=== PATIENT | male | born 1985 | race Caucasian/White ===

== ENCOUNTER 2022-03-21 13:39 | Inpatient (IN) | payer OTHER ==
[2022-03-21 14:42] LABS: Basophils # (A) 0.1 k/uL (0-0.2); Basophils % (A) 0 %; Eosinophils # (A) 0.2 k/uL (0-0.7); Eosinophils % (A) 1 %; HCT 46.3 % (39.0-53.0); HGB 15.5 gm/dL (13.0-17.5); Lymphocytes # (A) 0.8 k/uL (1.0-4.8); Lymphocytes % (A) 3 %; MCH 30.5 pg (25.0-35.0); MCHC 33.5 g/dL (31.0-37.0); MCV 90.9 fL (80.0-100.0); Mean Platelet Volume 9.1; Monocytes # (A) 0.8 k/uL (0-1.0); Monocytes % (A) 3 %; Neutrophils # (A) 22.8 k/uL (1.3-7.7); Neutrophils % (A) 92 %; Platelet Count 395 k/uL (150-450); RDW 12.9 % (11.5-15.5); WBC 24.7 k/uL (3.8-10.6)
[2022-03-21 14:53] LABS: Calcium 9.3 mg/dL (8.4-10.2); Total Protein 8.4 g/dL (6.3-8.2)
[2022-03-21 14:57] LABS: Potassium 4.3 mmol/L (3.5-5.1)
[2022-03-21] MEDS ORDERED: SODIUM CHLORIDE 0.9% 1,000 ML IV STA (15:08)
[2022-03-21] MEDS ORDERED: SODIUM CHLORIDE 0.9% 1,000 ML IV ONE ×2 (15:08)
[2022-03-21] MEDS ORDERED: ONDANSETRON 4 MG/2 ML VIAL IVP STA (15:08)
[2022-03-21] MEDS ORDERED: PANTOPRAZOLE 40 MG/10 ML VIAL IVP STA (15:08)
--- NOTE | 2022-03-21 15:18 | ED ---
GI Bleed HPI - General Chief complaint: GI Bleed Stated complaint: vomiting blood Time Seen by Provider: 03/21/22 14:11 Source: patient, EMS Mode of arrival: EMS Limitations: no limitations - History of Present Illness Initial comments: This patient is a 36-year-old man who arrives here by ambulance from [facility]. Patient was sent here to have evaluation for coffee-ground emesis. The patient states that he started having vomiting last evening. He has had 8-10 episodes of vomiting with coffee-ground material. He states he is not really keeping much in way of fluids down. He has some epigastric burning and cramping that is intermittent. He feels weak and dizzy. The patient is at [facility] to detox from opioids and benzodiazepines. Denies chest pain, dyspnea, diaphoresis or syncope. No change in bowel movemen ts noted. MD complaint: coffee ground emesis Onset/Timin -: days(s) Radiation: none Quality: cramping, burning Consistency: intermittent Improves with: none Worsens with: none Associated Symptoms: nausea, vomiting - Related Data Home Medications Medication Instructions Recorded Confirmed Acetaminophen [Tylenol] 650 mg PO Q4H PRN 03/21/22 03/21/22 Buprenorphine/Naloxone 8Mg/2Mg 1 film SL BID 03/21/22 03/21/22 [Suboxone 8-2Mg Film] Calcium/Magnesium/Zinc/Vitamin D 1 tab PO TID PRN 03/21/22 03/21/22 Chlorpheniramine Maleate 4 mg PO Q4H PRN 03/21/22 03/21/22 [Chlor-Trimeton] Hyoscyamine Sulfate [Levsin-Sl] 0.125 mg SL QID PRN 03/21/22 03/21/22 Ibuprofen [Motrin] 600 mg PO Q6H PRN 03/21/22 03/21/22 Multivitamins, Thera [Multivitamin 1 tab PO DAILY 03/21/22 03/21/22 (formulary)] PHENobarbitaL [PHENobarbital] 1 dose PO DIRECTED 03/21/22 03/21/22 Thiamine [Vitamin B-1] 100 mg PO DAILY 03/21/22 03/21/22 ondansetron HCL [Zofran] 8 mg PO Q6H PRN 03/21/22 03/21/22 Allergies Allergy/AdvReac Type Severity Reaction Status Date / Time No Known Allergies Allergy Verified 03/21/22 16:03 Review of Systems ROS Statement: Those systems with pertinent positive or pertinent negative responses have been documented in the HPI. ROS Other: All systems not noted in ROS Statement are negative. Constitutional: Reports: weakness. Denies: fever, chills Respiratory: Denies: cough, dyspnea Cardiovascular: Denies: chest pain, palpitations, edema Gastrointestinal: Reports: nausea, vomiting, hematemesis. Denies: abdominal pain, melena, hematochezia Genitourinary: Denies: dysuria, hematuria Skin: Denies: rash Neurological: Denies: headache, weakness Hematological/Lymphatic: Denies: easy bleeding Past Medical History Past Medical History: No Reported History Additional Past Medical History / Comment(s): Hep C History of Any Multi-Drug Resistant Organisms: None Reported Past Surgical History: Orthopedic Surgery Additional Past Surgical History / Comment(s): right hand Past Psychological History: Anxiety, Depression Smoking Status: Current every day smoker Past Alcohol Use History: None Reported Past Drug Use History: Heroin, IV Drug Use, Marijuana, Opiates General Exam Limitations: no limitations General appearance: alert, in no apparent distress, anxious Head exam: Present: atraumatic, normocephalic Eye exam: Present: normal appearance. Absent: scleral icterus, conjunctival injection ENT exam: Present: mucous membranes dry Neck exam: Present: normal inspection Respiratory exam: Present: normal lung sounds bilaterally. Absent: respiratory distress, wheezes, rales, rhonchi, stridor Cardiovascular Exam: Present: normal rhythm, tachycardia, normal heart sounds. Absent: systolic murmur, diastolic murmur, rubs, gallop GI/Abdominal exam: Present: soft. Absent: distended, tenderness, guarding, rebound, rigid, mass Extremities exam: Present: normal inspection, normal capillary refill. Absent: pedal edema, calf tenderness Neurological exam: Present: alert Skin exam: Present: warm, dry, intact, normal color. Absent: rash Course Vital Signs 03/21/22 03/21/22 03/21/22 13:42 14:39 16:05 Temperature 98 F Pulse Rate 56 L 74 56 L Pulse Rate [ Marketing Research Intern ] Respiratory 16 18 18 Rate Blood Pressure 124/98 140/91 131/75 Blood Pressure [Left Arm] O2 Sat by Pulse 100 100 100 Oximetry 03/21/22 03/21/22 16:33 17:00 Temperature 97.9 F 98.7 F Pulse Rate 64 Pulse Rate [ 56 L Marketing Research Intern ] Respiratory 18 18 Rate Blood Pressure 135/81 Blood Pressure 122/77 [Left Arm] O2 Sat by Pulse 97 100 Oximetry Procedures - Niland Protocol (Time Out) Nurse: Karmen Fernández Medical Decision Making - Medical Decision Making This patient is 36-year-old man who arrives here from [facility] to have evaluation. Patient is found to have moderate dehydration, and IV fluids are started. There is minimally elevated troponin and suspect that this is related to the patient's acute kidney injury. - Lab Data Result diagrams: 03/24/22 09:42 03/25/22 07:47 Lab Results 03/21/22 03/21/22 03/21/22 Range/Units 14:35 14:35 14:35 WBC 24.7 H (3.8-10.6) k/uL RBC 5.10 (4.30-5.90) m/uL Hgb 15.5 (13.0-17.5) gm/dL Hct 46.3 (39.0-53.0) % MCV 90.9 (80.0-100.0) fL MCH 30.5 (25.0-35.0) pg MCHC 33.5 (31.0-37.0) g/dL RDW 12.9 (11.5-15.5) % Plt Count 395 (150-450) k/uL MPV 9.1 Neutrophils % 92 % Lymphocytes % 3 % Monocytes % 3 % Eosinophils % 1 % Basophils % 0 % Neutrophils # 22.8 H (1.3-7.7) k/uL Lymphocytes # 0.8 L (1.0-4.8) k/uL Monocytes # 0.8 (0-1.0) k/uL Eosinophils # 0.2 (0-0.7) k/uL Basophils # 0.1 (0-0.2) k/uL APTT 23.7 (22.0-30.0) sec Sodium 136 L (137-145) mmol/L Potassium 4.3 (3.5-5.1) mmol/L Chloride 84 L (98-107) mmol/L Carbon Dioxide 30 (22-30) mmol/L Anion Gap 22 mmol/L BUN 62 H (9-20) mg/dL Creatinine 1.60 H (0.66-1.25) mg/dL Est GFR (CKD-EPI)AfAm 63 (>60 ml/min/1.73 sqM) Est GFR (CKD-EPI)NonAf 55 (>60 ml/min/1.73 sqM) Glucose 159 H (74-99) mg/dL Lactic Ac Sepsis Rflx Plasma Lactic Acid Polo (0.7-2.0) mmol/L Calcium 9.3 (8.4-10.2) mg/dL Total Bilirubin 1.0 (0.2-1.3) mg/dL AST 39 (17-59) U/L ALT 42 (4-49) U/L Alkaline Phosphatase 76 (38-126) U/L Troponin I (0.000-0.034) ng/mL Total Protein 8.4 H (6.3-8.2) g/dL Albumin 5.0 (3.5-5.0) g/dL Blood Type Blood Type Recheck Bld Type Recheck Status Antibody Screen Spec Expiration Date 03/21/22 03/21/22 03/21/22 Range/Units 14:35 14:35 14:35 WBC (3.8-10.6) k/uL RBC (4.30-5.90) m/uL Hgb (13.0-17.5) gm/dL Hct (39.0-53.0) % MCV (80.0-100.0) fL MCH (25.0-35.0) pg MCHC (31.0-37.0) g/dL RDW (11.5-15.5) % Plt Count (150-450) k/uL MPV Neutrophils % % Lymphocytes % % Monocytes % % Eosinophils % % Basophils % % Neutrophils # (1.3-7.7) k/uL Lymphocytes # (1.0-4.8) k/uL Monocytes # (0-1.0) k/uL Eosinophils # (0-0.7) k/uL Basophils # (0-0.2) k/uL APTT (22.0-30.0) sec Sodium (137-145) mmol/L Potassium (3.5-5.1) mmol/L Chloride (98-107) mmol/L Carbon Dioxide (22-30) mmol/L Anion Gap mmol/L BUN (9-20) mg/dL Creatinine (0.66-1.25) mg/dL Est GFR (CKD-EPI)AfAm (>60 ml/min/1.73 sqM) Est GFR (CKD-EPI)NonAf (>60 ml/min/1.73 sqM) Glucose (74-99) mg/dL Lactic Ac Sepsis Rflx Plasma Lactic Acid Polo 7.5 H* (0.7-2.0) mmol/L Calcium (8.4-10.2) mg/dL Total Bilirubin (0.2-1.3) mg/dL AST (17-59) U/L ALT (4-49) U/L Alkaline Phosphatase (38-126) U/L Troponin I 0.052 H* (0.000-0.034) ng/mL Total Protein (6.3-8.2) g/dL Albumin (3.5-5.0) g/dL Blood Type O Positive Blood Type Recheck No Previous Record Bld Type Recheck Status CABO Indicated Antibody Screen NEGATIVE Spec Expiration Date 03/24/2022 - 233403/21/22 Range/Units 14:59 WBC (3.8-10.6) k/uL RBC (4.30-5.90) m/uL Hgb (13.0-17.5) gm/dL Hct (39.0-53.0) % MCV (80.0-100.0) fL MCH (25.0-35.0) pg MCHC (31.0-37.0) g/dL RDW (11.5-15.5) % Plt Count (150-450) k/uL MPV Neutrophils % % Lymphocytes % % Monocytes % % Eosinophils % % Basophils % % Neutrophils # (1.3-7.7) k/uL Lymphocytes # (1.0-4.8) k/uL Monocytes # (0-1.0) k/uL Eosinophils # (0-0.7) k/uL Basophils # (0-0.2) k/uL APTT (22.0-30.0) sec Sodium (137-145) mmol/L Potassium (3.5-5.1) mmol/L Chloride (98-107) mmol/L Carbon Dioxide (22-30) mmol/L Anion Gap mmol/L BUN (9-20) mg/dL Creatinine (0.66-1.25) mg/dL Est GFR (CKD-EPI)AfAm (>60 ml/min/1.73 sqM) Est GFR (CKD-EPI)NonAf (>60 ml/min/1.73 sqM) Glucose (74-99) mg/dL Lactic Ac Sepsis Rflx Y Plasma Lactic Acid Polo (0.7-2.0) mmol/L Calcium (8.4-10.2) mg/dL Total Bilirubin (0.2-1.3) mg/dL AST (17-59) U/L ALT (4-49) U/L Alkaline Phosphatase (38-126) U/L Troponin I (0.000-0.034) ng/mL Total Protein (6.3-8.2) g/dL Albumin (3.5-5.0) g/dL Blood Type Blood Type Recheck Bld Type Recheck Status Antibody Screen Spec Expiration Date Critical Care Time Critical Care Time: Yes (30 minutes) Disposition Clinical Impression: Dehydration, Acute kidney injury, Lactic acidosis, Leukocytosis, GI bleed Disposition: ADMITTED IP TO THIS [facility] Condition: Fair Is patient prescribed a controlled substance at d/c from ED?: No
[2022-03-21] MEDS ORDERED: NICOTINE 21MG/24HR PATCH TRANSDERM STA (15:19)
[2022-03-21] MEDS ORDERED: NALOXONE 0.4 MG/ML 1 ML VIAL IV PRN (16:06)
[2022-03-21] MEDS ORDERED: ACETAMINOPHEN TAB 325 MG TAB PO PRN (17:45)
[2022-03-21] MEDS ORDERED: HYOSCYAMINE SULFATE 0.125 MG TAB SL PRN (17:45)
--- NOTE | 2022-03-21 18:17 | P.HPIM ---
History of Present Illness This is a pleasant 56 years old male with past medical history of Hep C, Anxiety, Depression,Curr ent every day smoker, Heroin, IV Drug Use, Marijuana, Opiates Patient was on [place] for opioids and benzodiazepine withdrawal for the last few days, he presents because of recurrent vomiting as he describes as coffee ground dark brown vomitus about 4-5 times per day and last night. This morning also he has been vomiting For 2 days has been complaining of from epigastric pain and discomfort but no significant tenderness, he rates his pain as 7/10 felt like sharp and patient states she is not eating well because of that He had normal bowel movement He has little short of breath but no coughing, no phlegm, no chest pain, He has no energy He denies headache or dizziness or weakness or numbness, no urinary urgency or problem Also patient was on ibuprofen at [facility] He smokes about 1 pack per day and he was counseled and he agrees to quit and to the nicotine patch. No alcohol. He has no primary doctor he sees Dr. Chavez for Suboxone. Patient also denies any chest pain Vitas looks stable, patient is afebrile. Labs reviewed, sample looks hemoconcentrated, WBC 24,000, hemoglobin 15.5, platelet normal. PTT 23. Sodium 136, creatinine elevated at 1.6. Elevated lactic acid 7.5, elevated troponin 0.05. EKG showing normal sinus rhythm at [address]-T changes, there was some suspicion of early repolarization. Review of Systems Review of systems CONSTITUTIONAL: No fever, no malaise, no fatigue. HEENT: No recent visual problems or hearing problems. Denied any sore throat. CARDIOVASCULAR: No orthopnea, PND, no palpitations, no syncope. PULMONARY: no cough, no hemoptysis. GASTROINTESTINAL: No diarrhea, . Normoactive bowel sounds. NEUROLOGICAL: No headaches, no weakness, no numbness. HEMATOLOGICAL: Denies any bleeding or petechiae. GENITOURINARY: Denies any burning micturition, frequency, or urgency. MUSCULOSKELETAL/RHEUMATOLOGICAL: Denies any joint pain, swelling, or any muscle pain. ENDOCRINE: Denies any polyuria or polydipsia. Past Medical History Past Medical History: No Reported History Additional Past Medical History / Comment(s): Hep C History of Any Multi-Drug Resistant Organisms: None Reported Past Surgical History: Orthopedic Surgery Additional Past Surgical History / Comment(s): right hand Past Psychological History: Anxiety, Depression Smoking Status: Current every day smoker Past Alcohol Use History: None Reported Past Drug Use History: Heroin, IV Drug Use, Marijuana, Opiates Medications and Allergies Home Medications Medication Instructions Recorded Confirmed Type Acetaminophen [Tylenol] 650 mg PO Q4H PRN 03/21/22 03/21/22 History Buprenorphine/Naloxone 8Mg/2Mg 1 film SL BID 03/21/22 03/21/22 History [Suboxone 8-2Mg Film] Calcium/Magnesium/Zinc/Vitamin D 1 tab PO TID PRN 03/21/22 03/21/22 History Chlorpheniramine Maleate 4 mg PO Q4H PRN 03/21/22 03/21/22 History [Chlor-Trimeton] Hyoscyamine Sulfate [Levsin-Sl] 0.125 mg SL QID PRN 03/21/22 03/21/22 History Ibuprofen [Motrin] 600 mg PO Q6H PRN 03/21/22 03/21/22 History Multivitamins, Thera [Multivitamin 1 tab PO DAILY 03/21/22 03/21/22 History (formulary)] PHENobarbitaL [PHENobarbital] 1 dose PO DIRECTED 03/21/22 03/21/22 History Thiamine [Vitamin B-1] 100 mg PO DAILY 03/21/22 03/21/22 History ondansetron HCL [Zofran] 8 mg PO Q6H PRN 03/21/22 03/21/22 History Allergies Allergy/AdvReac Type Severity Reaction Status Date / Time No Known Allergies Allergy Verified 03/21/22 16:03 Physical Exam Vitals: Vital Signs Temp Pulse Pulse Resp BP BP Pulse Ox 03/21/22 17:00 98.7 F 64 18 135/81 100 03/21/22 16:33 97.9 F 56 L 18 122/77 97 03/21/22 16:05 56 L 18 131/75 100 03/21/22 14:39 74 18 140/91 100 03/21/22 13:42 98 F 56 L 16 124/98 100 Intake and Output 03/21/22 03/21/22 03/21/22 06:59 14:59 22:59 Other: Weight 68.039 kg 68.039 kg GENERAL: The patient is alert and oriented x3, not in any acute distress. Well developed, well nourished. HEENT: Pupils are round and equally reacting to light. EOMI. No scleral icterus. No conjunctival pallor. Normocephalic, atraumatic. No pharyngeal erythema. No thyromegaly. CARDIOVASCULAR: S1 and S2 present. No murmurs, rubs, or gallops. PULMONARY: Chest is clear to auscultation, no wheezing or crackles. -ABDOMEN: Soft, nontender, no overt epigastric tenderness on palpation, only mild discomfort nondistended, normoactive bowel sounds. No palpable organomegaly. MUSCULOSKELETAL: No joint swelling or deformity. EXTREMITIES: No cyanosis, clubbing, or pedal edema. NEUROLOGICAL: Gross neurological examination did not reveal any focal deficits. SKIN: No rashes. no petechiae. Results CBC & Chem 7: 03/21/22 14:35 03/21/22 14:35 Labs: Abnormal Lab Results - Last 24 Hours (Table) 03/21/22 03/21/22 03/21/22 Range/Units 14:35 14:35 14:35 WBC 24.7 H (3.8-10.6) k/uL Neutrophils # 22.8 H (1.3-7.7) k/uL Lymphocytes # 0.8 L (1.0-4.8) k/uL Sodium 136 L (137-145) mmol/L Chloride 84 L (98-107) mmol/L BUN 62 H (9-20) mg/dL Creatinine 1.60 H (0.66-1.25) mg/dL Glucose 159 H (74-99) mg/dL Plasma Lactic Acid Polo 7.5 H* (0.7-2.0) mmol/L Troponin I (0.000-0.034) ng/mL Total Protein 8.4 H (6.3-8.2) g/dL 03/21/22 Range/Units 14:35 WBC (3.8-10.6) k/uL Neutrophils # (1.3-7.7) k/uL Lymphocytes # (1.0-4.8) k/uL Sodium (137-145) mmol/L Chloride (98-107) mmol/L BUN (9-20) mg/dL Creatinine (0.66-1.25) mg/dL Glucose (74-99) mg/dL Plasma Lactic Acid Polo (0.7-2.0) mmol/L Troponin I 0.052 H* (0.000-0.034) ng/mL Total Protein (6.3-8.2) g/dL Assessment and Plan Assessment: Patient complains from coffee ground vomitus and epigastric pain, rule out GI bleed Elevated troponin, with no chest pain Anxiety, depression Nicotine dependence Recent history of substance abuse including benzodiazepines and opioids was on [place]. With previous history of IV drug abuse, marijuana History of hep C Elevated lactic acid acute kidney injury Plan: Check occult blood in stool Continue with IV hydration Continue with Protonix Avoid NSAIDs Monitor hemoglobin GI consult Cardiology consult, check echocardiogram Check bladder scan monitor creatinine Labs and medication were reviewed.. Continue same treatment. Continue with symptomatic treatment. Resume home medication. Monitor lytes and vitals. DVT and GI prophylaxis. Further recommendations as per clinical course of the patient DVT prophylaxis: no Subcutaneous heparin for possible GI bleed GI Prophylaxis: Ppi Prognosis is guarded
[2022-03-21] MEDS: SODIUM CHLORIDE 0.9% 1,000 ML IV SCH ×2 (18:59→23:44)
[2022-03-21] MEDS: NON FORMULARY DRUG (Buprenorphine/Naloxone 8mg/2mg 1 EACH Film) SUBLINGUAL SCH (21:11)
[2022-03-21] MEDS ORDERED: ZOLPIDEM 5 MG TAB PO ONE (23:33)
[2022-03-22 04:54] LABS: Basophils # (A) 0.1 k/uL (0-0.2); Basophils % (A) 0 %; Eosinophils # (A) 0.1 k/uL (0-0.7); Eosinophils % (A) 1 %; HCT 39.2 % (39.0-53.0); HGB 13.1 gm/dL (13.0-17.5); Lymphocytes # (A) 1.1 k/uL (1.0-4.8); Lymphocytes % (A) 6 %; MCH 30.3 pg (25.0-35.0); MCHC 33.5 g/dL (31.0-37.0); MCV 90.7 fL (80.0-100.0); Mean Platelet Volume 8.1; Monocytes # (A) 0.6 k/uL (0-1.0); Monocytes % (A) 4 %; Neutrophils # (A) 16.1 k/uL (1.3-7.7); Neutrophils % (A) 89 %; Platelet Count 307 k/uL (150-450); RBC 4.32 m/uL (4.30-5.90); RDW 12.6 % (11.5-15.5); WBC 18.1 k/uL (3.8-10.6)
[2022-03-22 05:06] LABS: Prothrombin Time 11.3 sec (9.0-12.0)
[2022-03-22 05:09] LABS: ALT 21 U/L (4-49); AST 21 U/L (17-59); African American GFR (CKD) >90 (>60 ml/min/1.73 sqM); Albumin 3.8 g/dL (3.5-5.0); Alkaline Phosphatase 70 U/L (38-126); Anion Gap 11 mmol/L; Bilirubin, Delta 0.2 mg/dL (0.0-0.2); Bilirubin,Unconjugated 0.5 mg/dL (0.0-1.1); Blood Urea Nitrogen 33 mg/dL (9-20); Calcium 8.1 mg/dL (8.4-10.2); Carbon Dioxide 28 mmol/L (22-30); Chloride 97 mmol/L (98-107); Glucose 107 mg/dL (74-99); Magnesium 2.2 mg/dL (1.6-2.3); Non-African American GFR(CKD) >90 (>60 ml/min/1.73 sqM); Potassium 3.9 mmol/L (3.5-5.1); Sodium 136 mmol/L (137-145); Total Bilirubin 0.7 mg/dL (0.2-1.3); Total Protein 6.4 g/dL (6.3-8.2)
[2022-03-22] MEDS ORDERED: NON FORMULARY DRUG (Calcium/Magnesium/Zinc/Vitamin D 1 TAB) PO PRN (08:00)
[2022-03-22] MEDS ORDERED: PANTOPRAZOLE 40 MG/10 ML VIAL IV SCH (09:00)
[2022-03-22 09:06] LABS: Basophils % (A) 0 %; Eosinophils % (A) 0 %; HCT 39.4 % (39.0-53.0); Lymphocytes # (A) 1.1 k/uL (1.0-4.8); Lymphocytes % (A) 7 %; MCH 30.4 pg (25.0-35.0); MCHC 33.1 g/dL (31.0-37.0); MCV 91.8 fL (80.0-100.0); Mean Platelet Volume 8.1; Monocytes # (A) 0.6 k/uL (0-1.0); Monocytes % (A) 4 %; Neutrophils # (A) 13.2 k/uL (1.3-7.7); Neutrophils % (A) 88 %; Platelet Count 295 k/uL (150-450); RBC 4.29 m/uL (4.30-5.90); RDW 12.5 % (11.5-15.5); WBC 15.1 k/uL (3.8-10.6)
[2022-03-22 09:16] LABS: African American GFR (CKD) >90 (>60 ml/min/1.73 sqM); Anion Gap 11 mmol/L; Blood Urea Nitrogen 28 mg/dL (9-20); Calcium 8.2 mg/dL (8.4-10.2); Carbon Dioxide 27 mmol/L (22-30); Chloride 98 mmol/L (98-107); Glucose 121 mg/dL (74-99); Magnesium 2.1 mg/dL (1.6-2.3); Non-African American GFR(CKD) >90 (>60 ml/min/1.73 sqM); Potassium 3.8 mmol/L (3.5-5.1); Sodium 136 mmol/L (137-145)
[2022-03-22] MEDS: MULTIVITAMINS, THERA 1 EACH TAB PO SCH (09:19)
[2022-03-22] MEDS: THIAMINE 100 MG TAB PO SCH (09:19)
[2022-03-22] MEDS: SODIUM CHLORIDE 0.9% 1,000 ML IV SCH ×2 (09:19→15:32)
[2022-03-22] MEDS: NON FORMULARY DRUG (Buprenorphine/Naloxone 8mg/2mg 1 EACH Film) SUBLINGUAL SCH ×2 (09:20→20:57)
--- NOTE | 2022-03-22 10:01 | P.CRDCN ---
History of Present Illness Consult date: 03/22/22 History of present illness: HISTORY OF PRESENT ILLNESS: This is a 36-year-old male with a past medical history significant for hepatitis C, anxiety, depression, nicotine dependence, drug abuse including benzodiazepines, opiates, and cocaine. Patient states he last used cocaine on Saturday. Opiates on Saturday, and benzodiazepines on Saturday. He is currently at [facility] for rehab. 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 We have been asked to see the patient in consultation for abnormal troponins. Patient examined at the bedside. Patient states on Saturday night he began to feel nauseous. He states that he started throwing up brown-colored emesis that resembled coffee grounds. He states that he was lightheaded and dizzy. He denied having any chest pain or pressure. He states he has not been eating or drinking well since Saturday. The patient was found to have an acute kidney injury with a creatinine of 1.6. He has received IV fluid hydration with improvement in his renal function. Patient was found to have leukocytosis upon admission with a white count of 24.7. He was also found to have lactic acidosis with a lactic acid of 7.5. * EKG reveals sinus mechanism with no signs of acute ischemic. * Laboratory data: WBC 15.1. Hemoglobin 13.0. Platelet count 295. Sodium 136. Potassium 3.8. BUN 28. Creatinine 0.83. Troponin 0.052. 0.075. 0.073. * Current home cardiac medications include none REVIEW OF SYSTEMS: At the time of my exam: CONSTITUTIONAL: Denies fever or chills. HEENT: Denies blurred vision, vision changes, or eye pain. Denies hemoptysis CARDIOVASCULAR: Denies chest pain. Denies orthopnea. Denies PND. Denies palpitations RESPIRATORY: Denies shortness of breath. GASTROINTESTINAL: Denies abdominal pain. Denies nausea or vomiting. HEMATOLOGIC: Denies bleeding disorders. GENITOURINARY: Denies any blood in urine. SKIN: Denies pruitis. Denies rash. PHYSICAL EXAM: VITAL SIGNS: Reviewed. GENERAL: Well-developed in no acute distress. HEENT: Head is normocephalic. Pupils are equal, round. Sclerae anicteric. Mucous membranes of the mouth are moist. Neck supple. No JVD or thyromegaly LUNGS: Respirations even and unlabored. Lungs essentially clear to auscultation bilaterally. HEART: Regular rate and rhythm. S1 and S2 heard. ABDOMEN: Soft. Nondistended. Nontender. EXTREMITIES: Normal range of motion. No clubbing or cyanosis. Peripheral pulses intact. No lower extremity edema NEUROLOGIC: Awake and alert. Oriented x 3. ASSESSMENT: Coffee ground emesis, r/o GI bleed Leukocytosis Lactic acidosis Acute kidney injury Abnormal troponins, not suggestive of acute coronary syndrome Nicotine dependence Benzodiazepine abuse Opiate abuse Cocaine use PLAN: An acute coronary event has been ruled out Obtain 2D echo to assess cardiac structure and function Await GI evaluation Obtain blood cultures Further recommendations pending patient course Nurse practitioner note has been reviewed by physician. Signing provider agrees with the documented findings, assessment, and plan of care. Past Medical History Past Medical History: No Reported History Additional Past Medical History / Comment(s): Hep C History of Any Multi-Drug Resistant Organisms: None Reported Past Surgical History: Orthopedic Surgery Additional Past Surgical History / Comment(s): right hand Past Psychological History: Anxiety, Depression Smoking Status: Current every day smoker Past Alcohol Use History: None Reported Past Drug Use History: Heroin, IV Drug Use, Marijuana, Opiates Medications and Allergies Home Medications Medication Instructions Recorded Confirmed Type Acetaminophen [Tylenol] 650 mg PO Q4H PRN 03/21/22 03/21/22 History Buprenorphine/Naloxone 8Mg/2Mg 1 film SL BID 03/21/22 03/21/22 History [Suboxone 8-2Mg Film] Calcium/Magnesium/Zinc/Vitamin D 1 tab PO TID PRN 03/21/22 03/21/22 History Chlorpheniramine Maleate 4 mg PO Q4H PRN 03/21/22 03/21/22 History [Chlor-Trimeton] Hyoscyamine Sulfate [Levsin-Sl] 0.125 mg SL QID PRN 03/21/22 03/21/22 History Ibuprofen [Motrin] 600 mg PO Q6H PRN 03/21/22 03/21/22 History Multivitamins, Thera [Multivitamin 1 tab PO DAILY 03/21/22 03/21/22 History (formulary)] PHENobarbitaL [PHENobarbital] 1 dose PO DIRECTED 03/21/22 03/21/22 History Thiamine [Vitamin B-1] 100 mg PO DAILY 03/21/22 03/21/22 History ondansetron HCL [Zofran] 8 mg PO Q6H PRN 03/21/22 03/21/22 History Allergies Allergy/AdvReac Type Severity Reaction Status Date / Time No Known Allergies Allergy Verified 03/21/22 16:03 Physical Exam Vitals: Vital Signs Temp Pulse Pulse Resp BP BP Pulse Ox 03/22/22 04:00 98.7 F 92 18 140/74 97 03/22/22 00:00 98.8 F 88 18 138/68 98 03/21/22 20:00 99.2 F 90 18 134/65 97 03/21/22 17:00 98.7 F 64 18 135/81 100 03/21/22 16:33 97.9 F 56 L 18 122/77 97 03/21/22 16:05 56 L 18 131/75 100 03/21/22 14:39 74 18 140/91 100 03/21/22 13:42 98 F 56 L 16 124/98 100 Intake and Output 03/21/22 03/22/22 03/22/22 22:59 06:59 14:59 Intake Total 240 Balance 240 Intake: Oral 240 Other: Voiding Method Toilet Toilet # Voids 2 Weight 68.039 kg Results 03/22/22 08:36 03/22/22 08:36 Cardiac Enzymes 03/21/22 03/21/22 03/21/22 Range/Units 14:35 14:35 18:48 AST 39 (17-59) U/L Troponin I 0.052 H* 0.075 H* (0.000-0.034) ng/mL 03/21/22 03/22/22 Range/Units 20:41 04:13 AST 21 (17-59) U/L Troponin I 0.073 H* (0.000-0.034) ng/mL Coagulation 03/21/22 03/22/22 Range/Units 14:35 04:13 PT 11.3 (9.0-12.0) sec APTT 23.7 (22.0-30.0) sec CBC 03/21/22 03/22/22 Range/Units 14:35 04:13 WBC 24.7 H 18.1 H (3.8-10.6) k/uL RBC 5.10 4.32 (4.30-5.90) m/uL Hgb 15.5 13.1 (13.0-17.5) gm/dL Hct 46.3 39.2 (39.0-53.0) % Plt Count 395 307 (150-450) k/uL Comprehensive Metabolic Panel 03/21/22 03/22/22 Range/Units 14:35 04:13 Sodium 136 L 136 L (137-145) mmol/L Potassium 4.3 3.9 (3.5-5.1) mmol/L Chloride 84 L 97 L (98-107) mmol/L Carbon Dioxide 30 28 (22-30) mmol/L BUN 62 H 33 H (9-20) mg/dL Creatinine 1.60 H 0.85 (0.66-1.25) mg/dL Glucose 159 H 107 H (74-99) mg/dL Calcium 9.3 8.1 L (8.4-10.2) mg/dL Unconjugated Bilirubin 0.5 (0.0-1.1) mg/dL AST 39 21 (17-59) U/L ALT 42 21 (4-49) U/L Alkaline Phosphatase 76 70 (38-126) U/L Total Protein 8.4 H 6.4 (6.3-8.2) g/dL Albumin 5.0 3.8 (3.5-5.0) g/dL Current Medications Generic Name Dose Route Start Last Admin Trade Name Freq PRN Reason Stop Dose Admin Acetaminophen 650 mg 03/21/22 17:45 Acetaminophen Tab 325 Mg Tab PO Q4H PRN Fever and/ or Pain Hyoscyamine 0.125 mg 03/21/22 17:45 Hyoscyamine Sulfate 0.125 Mg Tab SL QID PRN GI Upset Sodium Chloride 1,000 mls @ 130 mls/hr 03/21/22 16:15 03/21/22 23:44 Saline 0.9% IV 130 mls/hr .[id number] LISANDRA Administration Multivitamins 1 each 03/22/22 09:00 Multivitamins, Thera 1 Each Tab PO DAILY LISANDRA Naloxone HCl 0.2 mg 03/21/22 16:06 Naloxone 0.4 Mg/Ml 1 Ml Vial IV Q2M PRN Opioid Reversal Non-Formulary Medication 1 film 03/21/22 21:00 03/21/22 21:11 Buprenorphine/Naloxone 8mg/2mg SUBLINGUAL 1 film BID LISANDRA Administration Pantoprazole Sodium 40 mg 03/22/22 09:00 Pantoprazole 40 Mg/10 Ml Vial IV DAILY LISANDRA Thiamine HCl 100 mg 03/22/22 09:00 Thiamine 100 Mg Tab PO DAILY LISANDRA Intake and Output 03/21/22 03/22/22 03/22/22 22:59 06:59 14:59 Intake Total 240 Balance 240 Intake: Oral 240 Other: Voiding Method Toilet Toilet # Voids 2 Weight 68.039 kg 03/22/22 04:13 03/22/22 04:13
--- NOTE | 2022-03-22 12:00 | CA ---
Transthoracic Echo Report Name: Timothy Gill Age: 36 Gender: M : 1985 Exam Date: 03/22/2022 08:12 Exam Location: [facility] Ht (in): 72 Wt (lb): 150 Ordering Physician: Zion Bradford MD Attending/Referring Phys: [id number], Suzette Afternoon Babysitter Katina Mcclure, MARCIA Procedure CPT: Indications: Rule out heart disease Cardiac Hx: Technical Quality: Contrast 1: Total Dose (mL): Contrast 2: Total Dose (mL): MEASUREMENTS (Male / Female) Normal Values 2D ECHO LV Diastolic Diameter PLAX 4.2 cm 4.2 - 5.9 / 3.9 - 5.3 cm LV Systolic Diameter PLAX 2.6 cm IVS Diastolic Thickness 1.1 cm 0.6 - 1.0 / 0.6 - 0.9 cm LVPW Diastolic Thickness 1.4 cm 0.6 - 1.0 / 0.6 - 0.9 cm LV Relative Wall Thickness 0.6 RV Internal Dim ED PLAX 3.2 cm LA Systolic Diameter LX 3.0 cm 3.0 - 4.0 / 2.7 - 3.8 cm M-MODE Aortic Root Diameter MM 4.1 cm MV E Point Septal Separation 0.5 cm AV Cusp Separation MM 2.3 cm DOPPLER MV Area PHT 3.0 cm??? Mitral E Point Velocity 62.8 cm/s Mitral A Point Velocity 51.5 cm/s Mitral E to A Ratio 1.2 MV Deceleration Time 257.0 ms MV E' Velocity 10.4 cm/s Mitral E to MV E' Ratio 6.1 FINDINGS Left Ventricle Mildly increased septal wall thickness. Left ventricular ejection fraction is estimated at 50-55%. Right Ventricle Normal right ventricular size and function. Right Atrium Normal right atrial size. Left Atrium Normal left atrial size. Mitral Valve Mitral valve thickened. Mild mitral regurgitation. Aortic Valve Trileaflet aortic valve. Tricuspid Valve Possible vegetation on septel leaflet vs Tricuspid valve thickening,mild tricuspid regurgitation. Pulmonic Valve Structurally normal pulmonic valve. Pericardium Normal pericardium. Aorta Normal size aortic root and proximal ascending aorta. CONCLUSIONS Normal LV systolic function Mild mitral regurgitation There is thickening of the tricuspid valve leaflets of unclear clinical significance-clinical correlation suggested Previewed by: Dr. Derrick Collins MD (Electronically Signed) Final Date: 22 March 2022 11:59
[2022-03-22] MEDS ORDERED: LOPERAMIDE 2 MG CAP PO PRN (13:40)
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
--- NOTE | 2022-03-22 14:12 | P.CONS ---
History of Present Illness - Reason for Consult Consult date: 03/22/22 GI bleed Requesting physician: Zion Bradford - Chief Complaint Coffee-ground emesis - History of Present Illness This is a pleasant 36-year-old male who presented from the [facility] to the emergency department after complaining of coffee-ground emesis. Patient states he had 4-5 episodes of coffee-ground emesis yesterday while he is been admitted as inpatient for drug rehabilitation for last 3 days duration. Patient states he has been going through withdrawal, overall not feeling well. He still states that he just is not feeling well, he is having abdominal discomfort. No further nausea or vomiting since yesterday. Hemoglobin is stable at 13.1. No previous history of GI bleed. No history of peptic ulcer disease, denies any anticoagulation or regular NSAID use. Patient does have a history of IV drug use last used on Saturday, opioid and benzodiazepine addiction as well. Patient states he has a history hepatitis C and was treated excellently 5 years ago. However has used since then. The patient is currently denying any chest pain no shortness of breath, just feels overall unwell. Patient has had some weight loss. Labs: WBC 15 hemoglobin 13 hematocrit 39 platelet count 295,000 INR 1.0 sodium 136 potassium 3.8 BUN 28 creatinine 0.8 total bilirubin 0.7 AST 21 ALT 21 alkaline phosphatase 70 Review of Systems REVIEW OF SYSTEMS: CARDIOPULMONARY: No chest pain or shortness of breath. Gastrointestinal: Epigastric discomfort. Nausea vomiting with coffee-ground emesis. No rectal bleeding, or melena. GENITOURINARY: No dysuria or hematuria. MUSCULOSKELETAL: Reports normal range of motion. SKIN: No rashes. No jaundice. ENDOCRINE: No chills, fevers. No excessive weight gain or loss. No polydipsia or polyuria. PSYCHIATRIC: Unremarkable. NEUROLOGY: No change in mental status. Denies dizziness, headache. ENT: Vision unremarkable. CONSTITUTIONAL: No recent weight loss. No fever, chills, night sweats. Past Medical History Past Medical History: No Reported History Additional Past Medical History / Comment(s): Hep C History of Any Multi-Drug Resistant Organisms: None Reported Past Surgical History: Orthopedic Surgery Additional Past Surgical History / Comment(s): right hand Past Psychological History: Anxiety, Depression Smoking Status: Current every day smoker Past Alcohol Use History: None Reported Past Drug Use History: Heroin, IV Drug Use, Marijuana, Opiates Medications and Allergies Home Medications Medication Instructions Recorded Confirmed Type Acetaminophen [Tylenol] 650 mg PO Q4H PRN 03/21/22 03/21/22 History Buprenorphine/Naloxone 8Mg/2Mg 1 film SL BID 03/21/22 03/21/22 History [Suboxone 8-2Mg Film] Calcium/Magnesium/Zinc/Vitamin D 1 tab PO TID PRN 03/21/22 03/21/22 History Chlorpheniramine Maleate 4 mg PO Q4H PRN 03/21/22 03/21/22 History [Chlor-Trimeton] Hyoscyamine Sulfate [Levsin-Sl] 0.125 mg SL QID PRN 03/21/22 03/21/22 History Ibuprofen [Motrin] 600 mg PO Q6H PRN 03/21/22 03/21/22 History Multivitamins, Thera [Multivitamin 1 tab PO DAILY 03/21/22 03/21/22 History (formulary)] PHENobarbitaL [PHENobarbital] 1 dose PO DIRECTED 03/21/22 03/21/22 History Thiamine [Vitamin B-1] 100 mg PO DAILY 03/21/22 03/21/22 History ondansetron HCL [Zofran] 8 mg PO Q6H PRN 03/21/22 03/21/22 History Allergies Allergy/AdvReac Type Severity Reaction Status Date / Time No Known Allergies Allergy Verified 03/21/22 16:03 Physical Exam Vitals: Vital Signs Temp Pulse Pulse Resp BP BP Pulse Ox 03/22/22 11:38 99.1 F 65 14 145/74 99 03/22/22 08:00 99.2 F 60 12 144/69 100 03/22/22 04:00 98.7 F 92 18 140/74 97 03/22/22 00:00 98.8 F 88 18 138/68 98 03/21/22 20:00 99.2 F 90 18 134/65 97 03/21/22 17:00 98.7 F 64 18 135/81 100 03/21/22 16:33 97.9 F 56 L 18 122/77 97 03/21/22 16:05 56 L 18 131/75 100 03/21/22 14:39 74 18 140/91 100 Intake and Output 03/21/22 03/22/2222 22:59 06:59 14:59 Intake Total 240 670 Balance 240 670 Intake: Intake, IV Titration 130 Amount Sodium Chloride 0.9% 1, 130 000 ml @ 130 mls/hr IV . Q7H42M [facility] Rx#:[id number] Oral 240 540 Other: Voiding Method Toilet Toilet Toilet # Voids 2 1 Weight 68.039 kg General appearance: The patient is alert, oriented, appears in no acute distress. HET: Head is normocephalic and atraumatic. Conjunctiva pink. Sclera anicteric. Neck: Supple without lymphadenopathy. Trachea midline. Heart: S1 S2. Regular rate and rhythm. Lungs: Clear to auscultation. Abdomen: Soft, epigastric tenderness, thin, nondistended with bowel sounds. No guarding or rigidity. Skin: No rashes. No jaundice. Extremities: Normal skin color and turgor. No pedal edema. Neurological: No focal deficits. Alert and oriented x3. Results CBC & Chem 7: 03/22/22 08:36 03/22/22 08:36 Labs: Abnormal Lab Results - Last 24 Hours (Table) 03/21/22 03/21/22 03/21/22 Range/Units 14:35 14:35 14:35 WBC 24.7 H (3.8-10.6) k/uL RBC (4.30-5.90) m/uL Neutrophils # 22.8 H (1.3-7.7) k/uL Lymphocytes # 0.8 L (1.0-4.8) k/uL Sodium 136 L (137-145) mmol/L Chloride 84 L (98-107) mmol/L BUN 62 H (9-20) mg/dL Creatinine 1.60 H (0.66-1.25) mg/dL Glucose 159 H (74-99) mg/dL Plasma Lactic Acid Polo 7.5 H* (0.7-2.0) mmol/L Calcium (8.4-10.2) mg/dL Troponin I (0.000-0.034) ng/mL Total Protein 8.4 H (6.3-8.2) g/dL 03/21/22 03/21/22 03/21/22 Range/Units 14:35 18:48 18:48 WBC (3.8-10.6) k/uL RBC (4.30-5.90) m/uL Neutrophils # (1.3-7.7) k/uL Lymphocytes # (1.0-4.8) k/uL Sodium (137-145) mmol/L Chloride (98-107) mmol/L BUN (9-20) mg/dL Creatinine (0.66-1.25) mg/dL Glucose (74-99) mg/dL Plasma Lactic Acid Polo 4.0 H* (0.7-2.0) mmol/L Calcium (8.4-10.2) mg/dL Troponin I 0.052 H* 0.075 H* (0.000-0.034) ng/mL Total Protein (6.3-8.2) g/dL 03/21/22 03/21/22 03/22/22 Range/Units 20:41 23:25 04:13 WBC 18.1 H (3.8-10.6) k/uL RBC (4.30-5.90) m/uL Neutrophils # 16.1 H (1.3-7.7) k/uL Lymphocytes # (1.0-4.8) k/uL Sodium (137-145) mmol/L Chloride (98-107) mmol/L BUN (9-20) mg/dL Creatinine (0.66-1.25) mg/dL Glucose (74-99) mg/dL Plasma Lactic Acid Polo 2.4 H* (0.7-2.0) mmol/L Calcium (8.4-10.2) mg/dL Troponin I 0.073 H* (0.000-0.034) ng/mL Total Protein (6.3-8.2) g/dL 03/22/22 03/22/22 03/22/22 Range/Units 04:13 08:36 08:36 WBC 15.1 H (3.8-10.6) k/uL RBC 4.29 L (4.30-5.90) m/uL Neutrophils # 13.2 H (1.3-7.7) k/uL Lymphocytes # (1.0-4.8) k/uL Sodium 136 L 136 L (137-145) mmol/L Chloride 97 L (98-107) mmol/L BUN 33 H 28 H (9-20) mg/dL Creatinine (0.66-1.25) mg/dL Glucose 107 H 121 H (74-99) mg/dL Plasma Lactic Acid Polo (0.7-2.0) mmol/L Calcium 8.1 L 8.2 L (8.4-10.2) mg/dL Troponin I (0.000-0.034) ng/mL Total Protein (6.3-8.2) g/dL Assessment and Plan (1) GI bleed Narrative/Plan: 36-year-old male recently admitted to [facility] for drug rehab. No IV drug user last used on Saturday, as well as opioid and benzodiazepam dependent. Patient likely going through withdrawal and was not feeling well causing patient to have nausea and vomiting. Patient had reported coffee-ground emesis. Hemoglobin stable however did have an elevated BUN may be consistent with the upper GI bleed. Possible etiologies include Annette-Quintero tear, gastritis, esophagitis, peptic ulcer disease, AVM or other possible etiology. Will proceed with EGD tomorrow. Protonix 40 mg twice a day. Current Visit: Yes Status: Acute Code(s): K92.2 - GASTROINTESTINAL HEM ORRHAGE, UNSPECIFIED SNOMED Code(s): 25666266 (2) History of hepatitis C Narrative/Plan: We'll repeat hepatitis panel as well as hepatitis C RNA as patient is actively IV drug user treated in the past for hepatitis C Current Visit: Yes Status: Acute Code(s): Z86.19 - PERSONAL HISTORY OF OTHER INFECTIOUS AND PARASITIC DISEASES SNOMED Code(s): 22257988128462 (3) Intravenous drug user Current Visit: Yes Status: Acute Code(s): F19.90 - OTHER PSYCHOACTIVE SUBSTANCE USE, UNSPECIFIED, UNCOMPLICATED SNOMED Code(s): 953808285 Plan: 1. Continue symptomatic and supportive care 2. Protonix 40 mg IV twice a day 3. Avoid NSAIDs 4. Daily CBC, transfuse for hemoglobin less than 7 5. Clear liquid diet, nothing by mouth after midnight 6. Plan for EGD tomorrow. Procedure discussed with patient including risks and benefits, patient willing to proceed. Thank you for this consultation, we will continue to follow. Dr. Gilberto Collins I agree with the dictator's note, documented as a scribe by Cyn Hayward.
[2022-03-22] MEDS ORDERED: LORazepam 1 MG TAB PO PRN ×2 (14:35)
[2022-03-22] MEDS ORDERED: LORazepam 0.5 MG TAB PO PRN (14:35)
[2022-03-22] MEDS ORDERED: VANCOMYCIN IV PER PHARMACY 1 EACH MISC MISCELLANE PRN (16:15)
[2022-03-22] MEDS: VANCOMYCIN 1,250 MG in SODIUM CHLORIDE 0.9% 250 ML IVPB SCH (17:09)
[2022-03-22] MEDS: PANTOPRAZOLE 40 MG/10 ML VIAL IV SCH (21:01)
[2022-03-23] MEDS: CEFEPIME 2 GM in SODIUM CHLORIDE 0.9% 100 ML IVPB SCH ×3 (00:06→09:27)
[2022-03-23] MEDS: SODIUM CHLORIDE 0.9% 1,000 ML IV SCH ×2 (00:07→06:50)
[2022-03-23] MEDS: VANCOMYCIN 1,250 MG in SODIUM CHLORIDE 0.9% 250 ML IVPB SCH ×2 (00:12→09:27)
[2022-03-23 08:50] LABS: HCT 37.7 % (39.0-53.0); HGB 12.6 gm/dL (13.0-17.5); MCH 30.9 pg (25.0-35.0); MCHC 33.5 g/dL (31.0-37.0); MCV 92.2 fL (80.0-100.0); Platelet Count 224 k/uL (150-450); RBC 4.09 m/uL (4.30-5.90); RDW 12.2 % (11.5-15.5); WBC 7.3 k/uL (3.8-10.6)
[2022-03-23 09:03] LABS: African American GFR (CKD) >90 (>60 ml/min/1.73 sqM); Non-African American GFR(CKD) >90 (>60 ml/min/1.73 sqM)
[2022-03-23] MEDS: NON FORMULARY DRUG (Buprenorphine/Naloxone 8mg/2mg 1 EACH Film) SUBLINGUAL SCH ×2 (09:27→21:57)
[2022-03-23] MEDS: PANTOPRAZOLE 40 MG/10 ML VIAL IV SCH ×2 (09:27→21:58)
--- NOTE | 2022-03-23 09:44 | P.CONS ---
History of Present Illness - Reason for Consult Consult date: 03/22/22 Cardiac vegetation Requesting physician: Rosa Maria Julien - Chief Complaint Vomiting x few days - History of Present Illness Patient is a 36-year male with a past medical history significant for IV drug use last IV drug use was on Saturday that is 3 days ago patient presenting to the [facility] ER with [place] [facility] for evaluation of coffee-ground emesis patient started having vomited the night before presentation the hospital and apparently did have 8-10 episodes of vomiting patient was unable to keep any fluid down has been complaining of epigastric pain with mostly burning 5-6 out of 10 no radiation. Complaining of feeling weak and dizzy patient denies having any headache or URI symptoms no chest pain shortness of breath or cough on presentation to the hospital the patient was afebrile did have a low-grade fever of 99.2 last night patient did have white count of 18.1 on admission with a left shift kidney function has been normal patient did have an echocardiogram and was noticed to have a evidence of possible vegetation on the septal leaflet versus tricuspid wall mild thickening infectious he was consulted because of abnormal echo concerning for endocarditis Review of Systems Positive point has been mentioned in the HPI rest of the systems are negative Past Medical History Past Medical History: No Reported History Additional Past Medical History / Comment(s): Hep C History of Any Multi-Drug Resistant Organisms: None Reported Past Surgical History: Orthopedic Surgery Additional Past Surgical History / Comment(s): right hand Past Psychological History: Anxiety, Depression Smoking Status: Current every day smoker Past Alcohol Use History: None Reported Past Drug Use History: Heroin, IV Drug Use, Marijuana, Opiates Medications and Allergies Home Medications Medication Instructions Recorded Confirmed Type Acetaminophen [Tylenol] 650 mg PO Q4H PRN 03/21/22 03/21/22 History Buprenorphine/Naloxone 8Mg/2Mg 1 film SL BID 03/21/22 03/21/22 History [Suboxone 8-2Mg Film] Calcium/Magnesium/Zinc/Vitamin D 1 tab PO TID PRN 03/21/22 03/21/22 History Chlorpheniramine Maleate 4 mg PO Q4H PRN 03/21/22 03/21/22 History [Chlor-Trimeton] Hyoscyamine Sulfate [Levsin-Sl] 0.125 mg SL QID PRN 03/21/22 03/21/22 History Multivitamins, Thera [Multivitamin 1 tab PO DAILY 03/21/22 03/21/22 History (formulary)] PHENobarbitaL [PHENobarbital] 1 dose PO DIRECTED 03/21/22 03/21/22 History Thiamine [Vitamin B-1] 100 mg PO DAILY 03/21/22 03/21/22 History ondansetron HCL [Zofran] 8 mg PO Q6H PRN 03/21/22 03/21/22 History Pantoprazole [Protonix] 40 mg PO BID 42 Days #84 tab 03/26/22 Rx Allergies Allergy/AdvReac Type Severity Reaction Status Date / Time No Known Allergies Allergy Verified 03/21/22 16:03 Physical Exam Vitals: Vital Signs Temp Pulse Pulse Resp BP BP Pulse Ox 03/22/22 11:38 99.1 F 65 14 145/74 99 03/22/22 08:00 99.2 F 60 12 144/69 100 03/22/22 04:00 98.7 F 92 18 140/74 97 03/22/22 00:00 98.8 F 88 18 138/68 98 03/21/22 20:00 99.2 F 90 18 134/65 97 03/21/22 17:00 98.7 F 64 18 135/81 100 03/21/22 16:33 97.9 F 56 L 18 122/77 97 Intake and Output 03/22/22 03/22/22 03/22/22 06:59 14:59 22:59 Intake Total 240 670 Balance 240 670 Intake: Intake, IV Titration 130 Amount Sodium Chloride 0.9% 1, 130 000 ml @ 130 mls/hr IV . Q7H42M [facility] Rx#:[id number] Oral 240 540 Other: Voiding Method Toilet Toilet # Voids 2 1 GENERAL DESCRIPTION: Middle-aged male lying in bed, no distress. No tachypnea or accessory muscle of respiration use. HEENT: Shows Pallor , no scleral icterus. Oral mucous membrane is dry. No pharyngeal erythema or thrush NECK: Trachea central, no thyromegaly. LUNGS: Unlabored breathing. Clear to auscultation anteriorly. No wheeze or crackle. HEART: S1, S2, regular rate and rhythm. No loud murmur ABDOMEN: Soft, no tenderness , guarding or rigidity, no organomegaly EXTREMITIES: No edema of feet. SKIN: No rash, no masses palpable. NEUROLOGICAL: The patient is awake, alert, oriented x3, mood and affect normal. Results CBC & Chem 7: 03/26/22 08:47 03/26/22 08:47 Labs: Abnormal Lab Results - Last 24 Hours (Table) 03/21/22 03/21/22 03/21/22 Range/Units 18:48 18:48 20:41 WBC (3.8-10.6) k/uL RBC (4.30-5.90) m/uL Neutrophils # (1.3-7.7) k/uL Sodium (137-145) mmol/L Chloride (98-107) mmol/L BUN (9-20) mg/dL Glucose (74-99) mg/dL Plasma Lactic Acid Polo 4.0 H* (0.7-2.0) mmol/L Calcium (8.4-10.2) mg/dL Troponin I 0.075 H* 0.073 H* (0.000-0.034) ng/mL 03/21/22 03/22/22 03/22/22 Range/Units 23:25 04:13 04:13 WBC 18.1 H (3.8-10.6) k/uL RBC (4.30-5.90) m/uL Neutrophils # 16.1 H (1.3-7.7) k/uL Sodium 136 L (137-145) mmol/L Chloride 97 L (98-107) mmol/L BUN 33 H (9-20) mg/dL Glucose 107 H (74-99) mg/dL Plasma Lactic Acid Polo 2.4 H* (0.7-2.0) mmol/L Calcium 8.1 L (8.4-10.2) mg/dL Troponin I (0.000-0.034) ng/mL 03/22/22 03/22/22 Range/Units 08:36 08:36 WBC 15.1 H (3.8-10.6) k/uL RBC 4.29 L (4.30-5.90) m/uL Neutrophils # 13.2 H (1.3-7.7) k/uL Sodium 136 L (137-145) mmol/L Chloride (98-107) mmol/L BUN 28 H (9-20) mg/dL Glucose 121 H (74-99) mg/dL Plasma Lactic Acid Polo (0.7-2.0) mmol/L Calcium 8.2 L (8.4-10.2) mg/dL Troponin I (0.000-0.034) ng/mL Assessment and Plan (1) Abnormal echocardiogram Status: Acute Code(s): R93.1 - ABNORMAL FINDINGS ON DX IMAGING OF HEART AND COR CIRC SNOMED Code(s): 794993821 Plan: 1patient with an abnormal echocardiogram with concern for possible vegetation on the tricuspid wall in this patient who do have a history of IV drug use and is actively using drugs [facility] suspicious for infective endocarditis and possibly form MRSA less likely gram-negative but not entirely excluded. 2blood culture has been obtained x3. 3we will also obtain a CRP sed rate and a procalcitonin. 4we will empirically add vancomycin pharmacy to dose and cefepime while awaiting further work-up to be completed. 5patient will benefit from LEXII. We will follow on clinical condition and cultures to further adjust medication if needed Thank you for this consultation will follow this patient along with you Time with Patient: Greater than 30
[2022-03-23] MEDS: MULTIVITAMINS, THERA 1 EACH TAB PO SCH (10:02)
[2022-03-23] MEDS: THIAMINE 100 MG TAB PO SCH (10:03)
--- NOTE | 2022-03-23 10:24 | P.PN ---
Subjective Progress Note Date: 03/23/22 HISTORY OF PRESENT ILLNESS: This is a 36-year-old male with a past medical history significant for hepatitis C, anxiety, depression, nicotine dependence, drug abuse including benzodi azepines, opiates, and cocaine. Patient states he last used cocaine on Saturday. Opiates on Saturday, and benzodiazepines on Saturday. He is currently at [facility] for rehab. 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 We have been asked to see the patient in consultation for abnormal troponins. Patient examined at the bedside. Patient states on Saturday night he began to feel nauseous. He states that he started throwing up brown- colored emesis that resembled coffee grounds. He states that he was lightheaded and dizzy. He denied having any chest pain or pressure. He states he has not been eating or drinking well since Saturday. The patient was found to have an acute kidney injury with a creatinine of 1.6. He has received IV fluid hydration with improvement in his renal function. Patient was found to have leukocytosis upon admission with a white count of 24.7. He was also found to have lactic acidosis with a lactic acid of 7.5. * EKG reveals sinus mechanism with no signs of acute ischemic. * Laboratory data: WBC 15.1. Hemoglobin 13.0. Platelet count 295. Sodium 136. Potassium 3.8. BUN 28. Creatinine 0.83. Troponin 0.052. 0.075. 0.073. * Current home cardiac medications include none 03/23/2022 Patient examined this morning at the bedside. Patient states he is overall not feeling well. He denies chest pain or pressure. Denies SOB. He is scheduled for EGD today. Echocardiogram reveals reserved LV systolic function with possible vegetation on the tricuspid valve. Blood cultures are currently pending PHYSICAL EXAM: VITAL SIGNS: Reviewed. GENERAL: Well-developed in no acute distress. HEENT: Head is normocephalic. Pupils are equal, round. Sclerae anicteric. Mucous membranes of the mouth are moist. Neck supple. No JVD or thyromegaly LUNGS: Respirations even and unlabored. Lungs essentially clear to auscultation bilaterally. HEART: Regular rate and rhythm. S1 and S2 heard. ABDOMEN: Soft. Nondistended. Nontender. EXTREMITIES: Normal range of motion. No clubbing or cyanosis. Peripheral pulses intact. No lower extremity edema NEUROLOGIC: Awake and alert. Oriented x 3. ASSESSMENT: Coffee ground emesis, r/o GI bleed Leukocytosis Lactic acidosis Acute kidney injury Abnormal troponins, not suggestive of acute coronary syndrome Nicotine dependence Benzodiazepine abuse Opiate abuse Cocaine use PLAN: Infectious disease following. Continue antibiotics Patient scheduled for EGD today with GI team Await results of blood cultures Patient to undergo LEXII today Further recommendations pending patient course Nurse practitioner note has been reviewed by physician. Signing provider agrees with the documented findings, assessment, and plan of care. Objective - Vital Signs Vital signs: Vital Signs Temp 97.9 F 03/23/22 08:04 Pulse 56 L 03/23/22 08:04 Resp 18 03/23/22 08:04 BP 123/77 03/23/22 08:04 Pulse Ox 96 03/23/22 08:04 FiO2 Intake & Output 03/22/22 03/23/22 03/23/22 18:59 06:59 18:59 Intake Total 900 0 Balance 900 0 Intake: Intake, IV Titration 260 Amount Sodium Chloride 0.9% 1, 260 000 ml @ 130 mls/hr IV . Q7H42M [facility] Rx#:[id number] Oral 640 0 Other: Voiding Method Toilet Toilet Toilet # Voids 1 1 1 - Labs CBC & Chem 7: 03/23/22 08:23 03/23/22 08:23 Labs: Abnormal Lab Results - Last 24 Hours (Table) 03/22/22 03/23/22 Range/Units 16:19 08:23 RBC 4.09 L (4.30-5.90) m/uL Hgb 12.6 L (13.0-17.5) gm/dL Hct 37.7 L (39.0-53.0) % Procalcitonin 0.14 H (0.02-0.09) ng/mL
[2022-03-23] MEDS ORDERED: SODIUM CHLORIDE 0.9% 500 ML 500 ML IV ONE ×2 (14:15→14:56)
[2022-03-23] MEDS ORDERED: fentaNYL (PF) 50 MCG/ML 2 ML AMP ONE (14:22)
[2022-03-23] MEDS ORDERED: LIDOCAINE 2% INJ 20 MG/ML (2 ML VIAL) ONE (14:22)
[2022-03-23] MEDS ORDERED: PROPOFOL 10 MG/ML 20 ML VIAL IV ONE (14:22)
[2022-03-23] MEDS ORDERED: BENZOCAINE SPRAY 1 CAN MUCOUS MEM ONE (14:22)
[2022-03-23] MEDS ORDERED: MIDAZOLAM 2 MG/2 ML VIAL ONE (14:22)
--- NOTE | 2022-03-23 14:42 | P.PCN ---
Date of Procedure: 03/23/22 Description of Procedure: Indication: Evaluation of tricuspid valve Procedure Description: After explaining the procedure to the patient, it's risk and complications, blood pressure, heart rate and O2 saturation were monitored. The throat was sprayed with Cetacaine. Patient received sedation per anesthesia department. The probe was introduced into the esophagus without difficulty. Images were obtained. Following that, the probe was removed. There was no immediate complication. Findings: Left atrial size is normal, left ventricle size and systolic function are normal. The aortic valve and mitral valve are normal. There is mild thickening of the tip of the tricuspid valve leaflet with no clear evidence of vegetation. Pulmonic valve appears to be normal. Descending thoracic aorta appears to be normal. No pericardial effusion was noted. Contrast bubble study revealed no shunting across the intra-atrial septum. Doppler: Pulse wave and color Doppler were obtained, mild mitral and tricuspid regurgitation. There was no shunting across the intra-atrial septum Conclusion: 1. Normal ventricle size and systolic function 2. Mild mitral and tricuspid regurgitation 3. Mild thickening of the tip of the septal leaflet of the tricuspid valve with no evidence to suggest endocarditis 4. No shunting across the intra-atrial septum 5. No pericardial effusion
--- NOTE | 2022-03-23 14:50 | P.PCN ---
Date of Procedure: 03/23/22 Procedure(s) Performed: BRIEF HISTORY: Patient is a 36-year-old, pleasant, white male admitted hospital with acute upper GI bleed. He was asleep. We have undergoing rehabitation and developed 3 episodes of coffee-ground emesis. He scheduled for an upper endoscopy to evaluate further. PROCEDURE PERFORMED: Esophagogastroduodenoscopy. PREOPERATIVE DIAGNOSIS: Acute upper GI bleed. IV sedation per anesthesia. PROCEDURE: After informed consent was obtained, the patient was brought into the endoscopy unit. IV sedation was administered by Anesthesia under continuous monitoring. Initially the Olympus GIF-140 video endoscope was inserted into the mouth. Esophagus intubated without any difficulty. It was gradually advanced into the stomach and duodenum and carefully examined. The bulb and the second part of the duodenum appeared normal. The scope at this time was withdrawn to the stomach, adequately insufflated with air, and upon careful examination, mucosa of the antrum, body, cardia and the fundus appeared normal. The scope was then withdrawn into the esophagus.small hiatal hernia noted. the GE junction was located at 40 cm from the incisors. There was severe esophagitis with mucosal erythema friability and exudates noted in the distal esophagus extending from 30-40 cm from the incisors consistent with LA grade C reflux esophagitis. Tthe rest of esophagus appeared normal and the patient tolerated the procedure well. IMPRESSION: 1. Severe reflux esophagitis extended from 30-40 cm from the incisors with mucosal erythema friability and exudates consistent with LA grade C reflux esophagitis. 2. Small hiatal hernia. RECOMMENDATIONS: The findings of this examination were discussed with the patient. He will continue on Protonix 40 mg twice daily and follow antireflux measures.diet will be advanced as tolerated.
[2022-03-23] MEDS ORDERED: VANCOMYCIN TROUGH DUE 1 EACH MISC MISCELLANE ONE (15:00)
[2022-03-23 15:53] LABS: Hepatitis A Antibody IgM Nonreactive (Nonreactive); Hepatitis B Core IgM Nonreactive (Nonreactive); Hepatitis B Surface Antigen Nonreactive (Nonreactive); Hepatitis C IgG Antibody Reactive (Nonreactive)
[2022-03-23] MEDS: LORazepam 1 MG TAB PO PRN (21:57)
[2022-03-24] MEDS: MULTIVITAMINS, THERA 1 EACH TAB PO SCH (10:55)
[2022-03-24] MEDS: PANTOPRAZOLE 40 MG/10 ML VIAL IV SCH ×2 (10:55→20:46)
[2022-03-24] MEDS: LORazepam 1 MG TAB PO PRN ×2 (10:55→20:55)
[2022-03-24] MEDS: THIAMINE 100 MG TAB PO SCH (10:55)
[2022-03-24] MEDS: SODIUM CHLORIDE 0.9% 1,000 ML IV SCH (10:56)
--- NOTE | 2022-03-24 11:09 | P.PN ---
Subjective Progress Note Date: 03/24/22 PROGRESS NOTE The patient is a 36-year-old male with history of drug use who presented with symptoms of abdominal discomfort, nausea and vomiting and was found to have mild troponin elevation. His echocardiogram raised the possibility of tricuspid valve endocarditis. He underwent LEXII yesterday that showed mild thickening of the tip of the septal tricuspid valve leaflet with no clear evidence of vegeta tion. His systolic function was normal. He is feeling better today. He has no abdominal pain, nausea or vomiting. Medications: Protonix 40 mg IV every 12 hours PHYSICAL EXAMINATION: Blood pressure 118/70 heart rate 60 LUNGS: Clear to auscultation HEART: Regular rate and rhythm, S1, S2. No S3. No systolic murmur ABDOMEN: Soft, nontender, no organomegaly EXTREMETIES: No edema LAB: Pending IMPRESSION: 1. Troponin elevation with no evidence of acute coronary syndrome, type II event 2. History of drug use 3. Severe reflux esophagitis 4. Small hiatal hernia PLAN: 1. From the cardiac standpoint no further cardiac workup is needed 2. We will see him on as-needed basis 3. Please feel free to call us for any question Objective - Vital Signs Vital signs: Vital Signs Temp 98.5 F 03/24/22 00:00 Pulse 59 L 03/24/22 10:54 Resp 15 03/24/22 10:54 BP 118/77 03/24/22 10:54 Pulse Ox 99 03/24/22 10:54 FiO2 Intake & Output 03/23/22 03/24/22 03/24/22 18:59 06:59 18:59 Intake Total 610 590 Balance 610 590 Intake: IV 500 Intake, IV Titration 350 Amount Cefepime 2 gm In Sodium 100 Chloride 0.9% 100 ml @ 25 mls/hr IVPB Q8HR [facility] Rx# :[id number] Vancomycin 1,250 mg In 250 Sodium Chloride 0.9% 250 ml @ 125 mls/hr IVPB Q8HR [facility] Rx#:[id number] Oral 110 240 Other: Voiding Method Toilet Toilet # Voids 1 1 - Labs CBC & Chem 7: 03/23/22 08:23 03/23/22 08:23 Labs: Abnormal Lab Results - Last 24 Hours (Table) 03/23/22 Range/Units 08:23 Hep C IgG Ab Reactive A (Nonreactive) Microbiology - Last 24 Hours (Table) 03/22/22 16:19 Blood Culture - Preliminary Blood No Growth after 24 hours 03/22/22 16:27 Blood Culture - Preliminary Blood No Growth after 24 hours 03/22/22 10:05 Blood Culture - Preliminary Blood No Growth after 24 hours
[2022-03-24] MEDS: NON FORMULARY DRUG (Buprenorphine/Naloxone 8mg/2mg 1 EACH Film) SUBLINGUAL SCH ×2 (11:15→20:47)
[2022-03-24 15:53] LABS: African American GFR (CKD) >90 (>60 ml/min/1.73 sqM); Anion Gap 7 mmol/L; Blood Urea Nitrogen 21 mg/dL (9-20); Calcium 8.3 mg/dL (8.4-10.2); Carbon Dioxide 29 mmol/L (22-30); Chloride 100 mmol/L (98-107); Glucose 90 mg/dL (74-99); Non-African American GFR(CKD) >90 (>60 ml/min/1.73 sqM); Potassium 3.9 mmol/L (3.5-5.1); Sodium 136 mmol/L (137-145)
[2022-03-24 15:57] LABS: Basophils # (A) 0.1 k/uL (0-0.2); Basophils % (A) 1 %; Eosinophils # (A) 0.1 k/uL (0-0.7); Eosinophils % (A) 1 %; HGB 13.6 gm/dL (13.0-17.5); Lymphocytes # (A) 1.3 k/uL (1.0-4.8); Lymphocytes % (A) 20 %; MCH 30.3 pg (25.0-35.0); MCHC 33.2 g/dL (31.0-37.0); MCV 91.3 fL (80.0-100.0); Mean Platelet Volume 8.5; Monocytes # (A) 0.4 k/uL (0-1.0); Monocytes % (A) 6 %; Neutrophils # (A) 4.6 k/uL (1.3-7.7); Neutrophils % (A) 70 %; Platelet Count 210 k/uL (150-450); RDW 12.1 % (11.5-15.5); WBC 6.6 k/uL (3.8-10.6)
[2022-03-24 18:12] VITALS: RESP 16
--- NOTE | 2022-03-24 22:52 | P.PN ---
Subjective Progress Note Date: 03/23/22 Principal diagnosis: Abnormal Echo with question of endocarditis Patient is a 36-year-old male with a past medical history significant for IV drug use presenting to the hospital with coffee-ground emesis patient did have abnormal echo suspicion for possible vegetation to the tricuspid valve. On today's evaluation that is 03/23/2022, patient denies having any fever or any chills the patient is breathing comfortably on room air patient denies any further vomiting no chest pain shortness of breath or cough no abdominal pain or diarrhea Objective - Vital Signs Vital signs: Vital Signs Temp 97.9 F 03/23/22 12:47 Pulse 54 L 03/23/22 12:47 Resp 18 03/23/22 14:00 BP 133/97 03/23/22 12:47 Pulse Ox 96 03/23/22 12:47 FiO2 Intake & Output 03/22/22 03/23/22 03/23/22 18:59 06:59 18:59 Intake Total 900 500 Balance 900 500 Intake: IV 500 Intake, IV Titration 260 Amount Sodium Chloride 0.9% 1, 260 000 ml @ 130 mls/hr IV . Q7H42M [facility] Rx#:[id number] Oral 640 0 Other: Voiding Method Toilet Toilet Toilet # Voids 1 1 1 - Exam GENERAL DESCRIPTION: Middle-age male lying in bed in no distress RESPIRATORY SYSTEM: Unlabored breathing , decreased breath sounds at bases HEART: S1 S2 regular rate and rhythm , ABDOMEN: Soft , no tenderness EXTREMITIES: No edema feet - Labs CBC & Chem 7: 03/24/22 09:42 03/24/22 09:42 Labs: Abnormal Lab Results - Last 24 Hours (Table) 03/22/22 03/23/22 Range/Units 16:19 08:23 RBC 4.09 L (4.30-5.90) m/uL Hgb 12.6 L (13.0-17.5) gm/dL Hct 37.7 L (39.0-53.0) % Procalcitonin 0.14 H (0.02-0.09) ng/mL Microbiology - Last 24 Hours (Table) 03/22/22 10:05 Blood Culture - Preliminary Blood No Growth after 24 hours Assessment and Plan (1) Abnormal echocardiogram Current Visit: Yes Status: Acute Code(s): R93.1 - ABNORMAL FINDINGS ON DX IMAGING OF HEART AND COR CIRC SNOMED Code(s): 146853326 Plan: 1patient with an abnormal echocardiogram with concern for possible vegetation on the tricuspid wall in this patient who do have a history of IV drug use and is actively using drugs [facility] suspicious for infective endocarditis and possibly form MRSA less likely gram-negative but not entirely excluded. 2blood culture has been obtained x3 which are currently pending 3patient did have a LEXII with official report pending 4patient will continue with vancomycin pharmacy to dose and cefepime while awaiting further work-up to be completed. Time with Patient: Less than 30
--- NOTE | 2022-03-24 22:55 | P.PN ---
Subjective Progress Note Date: 03/24/22 Principal diagnosis: Abnormal Echo with question of endocarditis Patient is a 36-year-old male with a past medical history significant for IV drug use presenting to the hospital with coffee-ground emesis patient did have abnormal echo suspicion for possible vegetation to the tricuspid valve. Patient did have a LEXII completed on 03/23/2022 with no evidence of any veget ation On today's evaluation that is 03/24/2022, patient remains to be afebrile the patient is breathing comfortably on room air patient denies any further vomiting no chest pain shortness of breath or cough no abdominal pain or diarrhea, feeling slightly better Objective - Vital Signs Vital signs: Vital Signs Temp 98.0 F 03/24/22 14:19 Pulse 68 03/24/22 14:19 Resp 15 03/24/22 14:19 BP 117/72 03/24/22 14:19 Pulse Ox 98 03/24/22 14:19 FiO2 Intake & Output 03/23/22 03/24/22 03/24/22 18:59 06:59 18:59 Intake Total 610 590 Balance 610 590 Intake: IV 500 Intake, IV Titration 350 Amount Cefepime 2 gm In Sodium 100 Chloride 0.9% 100 ml @ 25 mls/hr IVPB Q8HR [facility] Rx# :[id number] Vancomycin 1,250 mg In 250 Sodium Chloride 0.9% 250 ml @ 125 mls/hr IVPB Q8HR [facility] Rx#:[id number] Oral 110 240 Other: Voiding Method Toilet Toilet # Voids 1 1 - Exam GENERAL DESCRIPTION: Middle-age male lying in bed in no distress RESPIRATORY SYSTEM: Unlabored breathing , decreased breath sounds at bases HEART: S1 S2 regular rate and rhythm , ABDOMEN: Soft , no tenderness EXTREMITIES: No edema feet - Labs CBC & Chem 7: 03/24/22 09:42 03/24/22 09:42 Labs: Abnormal Lab Results - Last 24 Hours (Table) 03/23/22 Range/Units 08:23 Hep C IgG Ab Reactive A (Nonreactive) Microbiology - Last 24 Hours (Table) 03/22/22 10:05 Blood Culture - Preliminary Blood No Growth after 48 hours 03/22/22 16:19 Blood Culture - Preliminary Blood No Growth after 24 hours 03/22/22 16:27 Blood Culture - Preliminary Blood No Growth after 24 hours Assessment and Plan (1) Abnormal echocardiogram Current Visit: Yes Status: Acute Code(s): R93.1 - ABNORMAL FINDINGS ON DX IMAGING OF HEART AND COR CIRC SNOMED Code(s): 054751798 Plan: 1patient with an abnormal echocardiogram with concern for possible vegetation on the tricuspid wall in this patient who do have a history of IV drug use and is actively using drugs [facility] suspicious for infective endocarditis , patient did have a LEXII that was negative for any vegetation, the patient blood culture had been negative so far clinically behaving is endocarditis 2vancomycin and cefepime has been discontinued and we'll monitor the patient closely off antibiotic therapy Time with Patient: Less than 30
[2022-03-25] MEDS: THIAMINE 100 MG TAB PO SCH (08:15)
[2022-03-25] MEDS: PANTOPRAZOLE 40 MG/10 ML VIAL IV SCH ×2 (08:15→20:43)
[2022-03-25] MEDS: MULTIVITAMINS, THERA 1 EACH TAB PO SCH (08:15)
[2022-03-25] MEDS: LORazepam 1 MG TAB PO PRN (08:40)
[2022-03-25 09:00] LABS: African American GFR (CKD) >90 (>60 ml/min/1.73 sqM); Non-African American GFR(CKD) >90 (>60 ml/min/1.73 sqM)
[2022-03-25] MEDS: NON FORMULARY DRUG (Buprenorphine/Naloxone 8mg/2mg 1 EACH Film) SUBLINGUAL SCH ×2 (09:46→20:43)
--- NOTE | 2022-03-25 10:43 | P.PN ---
Subjective Progress Note Date: 03/22/22 This is a pleasant 56 years old male with past medical history of Hep C, Anxiety, Depression,Curr ent every day smoker, Heroin, IV Drug Use, Marijuana, Opiates Patient was on [place] for opioids and benzodiazepine withdrawal for the last few days, he presents because of recurrent vomiting as he describes as coffee ground dark brown vomitus about 4-5 times per day and last night. This morning also he has been vomiting For 2 days has been complaining of from epigastric pain and discomfort but no s ignificant tenderness, he rates his pain as 7/10 felt like sharp and patient states she is not eating well because of that He had normal bowel movement He has little short of breath but no coughing, no phlegm, no chest pain, He has no energy He denies headache or dizziness or weakness or numbness, no urinary urgency or problem Also patient was on ibuprofen at [facility] He smokes about 1 pack per day and he was counseled and he agrees to quit and to the nicotine patch. No alcohol. He has no primary doctor he sees Dr. Chavez for Suboxone. Patient also denies any chest pain Vitas looks stable, patient is afebrile. Labs reviewed, sample looks hemoconcentrated, WBC 24,000, hemoglobin 15.5, platelet normal. PTT 23. Sodium 136, creatinine elevated at 1.6. Elevated lactic acid 7.5, elevated troponin 0.05. EKG showing normal sinus rhythm at [address]-T changes, there was some suspicion of early repolarization. 03/22/2022 Patient is currently lying in bed. Awake alert and seems distressed. Complains of epigastric abdominal pain. No further episodes of vomiting. No cough or sputum production. No chest pain or shortness of breath. 2-D echocardiogram showed thickening of the tricuspid valve leaflets of unclear clinical significance. Blood cultures were ordered. ID consult for possible infected endocarditis and patient was started on antibiotics in the form of cefazolin. Patient has been afebrile. No headache or dizziness or lightheadedness. Patie nt is still shaky and is being continued on alcohol withdrawal protocol. Laboratory data showed WBC count improved to 18.1 hemoglobin 13.1 and platelets 307 BUN 30. Creatinine 0.85. Current medications reviewed. Objective - Vital Signs Vital signs: Vital Signs Temp 99.1 F 03/22/22 11:38 Pulse 65 03/22/22 11:38 Resp 14 03/22/22 11:38 BP 145/74 03/22/22 11:38 Pulse Ox 99 03/22/22 11:38 FiO2 Intake & Output 03/21/22 03/22/22 03/22/22 18:59 06:59 18:59 Intake Total 240 670 Balance 240 670 Weight 68.039 kg Intake: Intake, IV Titration 130 Amount Sodium Chloride 0.9% 1, 130 000 ml @ 130 mls/hr IV . [id number] [facility] Rx#:[id number] Oral 240 540 Other: Voiding Method Toilet Toilet # Voids 2 1 - Exam GENERAL: The patient is alert and oriented x3, not in any acute distress. Well developed, well nourished. HEENT: Pupils are round and equally reacting to light. EOMI. No scleral icterus. No conjunctival pallor. Normocephalic, atraumatic. No pharyngeal erythema. No thyromegaly. CARDIOVASCULAR: S1 and S2 present. No murmurs, rubs, or gallops. PULMONARY: Chest is clear to auscultation, no wheezing or crackles. -ABDOMEN: Soft, nontender, no overt epigastric tenderness on palpation, only mild discomfort nondistended, normoactive bowel sounds. No palpable organomegaly. MUSCULOSKELETAL: No joint swelling or deformity. EXTREMITIES: No cyanosis, clubbing, or pedal edema. NEUROLOGICAL: Gross neurological examination did not reveal any focal deficits. SKIN: No rashes. no petechiae. - Labs CBC & Chem 7: 03/24/22 09:42 03/25/22 07:47 Labs: Abnormal Lab Results - Last 24 Hours (Table) 03/21/22 03/21/22 03/21/22 Range/Units 14:35 14:35 14:35 WBC 24.7 H (3.8-10.6) k/uL RBC (4.30-5.90) m/uL Neutrophils # 22.8 H (1.3-7.7) k/uL Lymphocytes # 0.8 L (1.0-4.8) k/uL Sodium 136 L (137-145) mmol/L Chloride 84 L (98-107) mmol/L BUN 62 H (9-20) mg/dL Creatinine 1.60 H (0.66-1.25) mg/dL Glucose 159 H (74-99) mg/dL Plasma Lactic Acid [place] 7.5 H* (0.7-2.0) mmol/L Calcium (8.4-10.2) mg/dL Troponin I (0.000-0.034) ng/mL Total Protein 8.4 H (6.3-8.2) g/dL 03/21/22 03/21/22 03/21/22 Range/Units 14:35 18:48 18:48 WBC (3.8-10.6) k/uL RBC (4.30-5.90) m/uL Neutrophils # (1.3-7.7) k/uL Lymphocytes # (1.0-4.8) k/uL Sodium (137-145) mmol/L Chloride (98-107) mmol/L BUN (9-20) mg/dL Creatinine (0.66-1.25) mg/dL Glucose (74-99) mg/dL Plasma Lactic Acid [place] 4.0 H* (0.7-2.0) mmol/L Calcium (8.4-10.2) mg/dL Troponin I 0.052 H* 0.075 H* (0.000-0.034) ng/mL Total Protein (6.3-8.2) g/dL 03/21/22 03/21/22 03/22/22 Range/Units 20:41 23:25 04:13 WBC 18.1 H (3.8-10.6) k/uL RBC (4.30-5.90) m/uL Neutrophils # 16.1 H (1.3-7.7) k/uL Lymphocytes # (1.0-4.8) k/uL Sodium (137-145) mmol/L Chloride (98-107) mmol/L BUN (9-20) mg/dL Creatinine (0.66-1.25) mg/dL Glucose (74-99) mg/dL Plasma Lactic Acid [place] 2.4 H* (0.7-2.0) mmol/L Calcium (8.4-10.2) mg/dL Troponin I 0.073 H* (0.000-0.034) ng/mL Total Protein (6.3-8.2) g/dL 03/22/22 03/22/22 03/22/22 Range/Units 04:13 08:36 08:36 WBC 15.1 H (3.8-10.6) k/uL RBC 4.29 L (4.30-5.90) m/uL Neutrophils # 13.2 H (1.3-7.7) k/uL Lymphocytes # (1.0-4.8) k/uL Sodium 136 L 136 L (137-145) mmol/L Chloride 97 L (98-107) mmol/L BUN 33 H 28 H (9-20) mg/dL Creatinine (0.66-1.25) mg/dL Glucose 107 H 121 H (74-99) mg/dL Plasma Lactic Acid Polo (0.7-2.0) mmol/L Calcium 8.1 L 8.2 L (8.4-10.2) mg/dL Troponin I (0.000-0.034) ng/mL Total Protein (6.3-8.2) g/dL Assessment and Plan Assessment: Coffee-ground emesis and epigastric pain, secondary to GI bleed Thickening of the tricuspid valve leaflets. Suspected infected endocarditis. Elevated troponin, with no chest pain Anxiety, depression Nicotine dependence Recent history of substance abuse including benzodiazepines and opioids was on [place]. With previous history of IV drug abuse, marijuana History of hep C Elevated lactic acid acute kidney injury Plan: Patient will be continued on IV hydration and IV Protonix. GI is planning for EGD tomorrow. Monitor hemoglobin. Patient is still having severe leukocytosis. 2-D echo cardiac exam showed tricuspid valve thickness and suspected infected endocarditis. Patient was started on IV antibiotics and blood cultures were ordered. Renal function is improving. DVT prophylaxis: no Subcutaneous heparin for possible GI bleed GI Prophylaxis: Ppi Prognosis is guarded Time with Patient: Greater than 30
--- NOTE | 2022-03-25 10:46 | P.PN ---
Subjective Progress Note Date: 03/23/22 This is a pleasant 56 years old male with past medical history of Hep C, Anxiety, Depression,Curr ent every day smoker, Heroin, IV Drug Use, Marijuana, Opiates Patient was on [place] for opioids and benzodiazepine withdrawal for the last few days, he presents because of recurrent vomiting as he describes as coffee ground dark brown vomitus about 4-5 times per day and last night. This morning also he has been vomiting For 2 days has been complaining of from epigastric pain and discomfort but no s ignificant tenderness, he rates his pain as 7/10 felt like sharp and patient states she is not eating well because of that He had normal bowel movement He has little short of breath but no coughing, no phlegm, no chest pain, He has no energy He denies headache or dizziness or weakness or numbness, no urinary urgency or problem Also patient was on ibuprofen at [facility] He smokes about 1 pack per day and he was counseled and he agrees to quit and to the nicotine patch. No alcohol. He has no primary doctor he sees Dr. Chavez for Suboxone. Patient also denies any chest pain Vitas looks stable, patient is afebrile. Labs reviewed, sample looks hemoconcentrated, WBC 24,000, hemoglobin 15.5, platelet normal. PTT 23. Sodium 136, creatinine elevated at 1.6. Elevated lactic acid 7.5, elevated troponin 0.05. EKG showing normal sinus rhythm at [address]-T changes, there was some suspicion of early repolarization. 03/22/2022 Patient is currently lying in bed. Awake alert and seems distressed. Complains of epigastric abdominal pain. No further episodes of vomiting. No cough or sputum production. No chest pain or shortness of breath. 2-D echocardiogram showed thickening of the tricuspid valve leaflets of unclear clinical significance. Blood cultures were ordered. ID consult for possible infected endocarditis and patient was started on antibiotics in the form of cefazolin. Patient has been afebrile. No headache or dizziness or lightheadedness. Patie nt is still shaky and is being continued on alcohol withdrawal protocol. Laboratory data showed WBC count improved to 18.1 hemoglobin 13.1 and platelets 307 BUN 30. Creatinine 0.85. 03/23/2022 Patient is currently lying in bed. Straight distress and not feeling well. Complains of epigastric abdominal pain. No complaints of chest pain or shortness of breath. Feels tired. Patient is being continued on antibiotics for possible infected endocarditis and 2-D echo Showed possible vegetation on the tricuspid valve. ID and cardiology is on board. Patient is scheduled for EGD today. Laboratory showed WBC improved to 7.3 hemoglobin 12.6 and platelets 224 and pro- calcitonin level is 0.14 CRP less than 0.5 Current medications reviewed. Objective - Vital Signs Vital signs: Vital Signs Temp 98.1 F 03/23/22 20:23 Pulse 54 L 03/23/22 12:47 Resp 17 03/23/22 20:23 BP 124/67 03/23/22 20:23 Pulse Ox 99 03/23/22 20:23 FiO2 Intake & Output 03/23/22 03/23/22 03/24/22 06:59 18:59 06:59 Intake Total 610 590 Balance 610 590 Intake: IV 500 Intake, IV Titration 350 Amount Cefepime 2 gm In Sodium 100 Chloride 0.9% 100 ml @ 25 mls/hr IVPB Q8HR [facility] Rx# :[id number] Vancomycin 1,250 mg In 250 Sodium Chloride 0.9% 250 ml @ 125 mls/hr IVPB Q8HR [facility] Rx#:[id number] Oral 110 240 Other: Voiding Method Toilet Toilet # Voids 1 1 1 - Exam GENERAL: The patient is alert and oriented x3, not in any acute distress. Well developed, well nourished. HEENT: Pupils are round and equally reacting to light. EOMI. No scleral icterus. No conjunctival pallor. Normocephalic, atraumatic. No pharyngeal erythema. No thyromegaly. CARDIOVASCULAR: S1 and S2 present. No murmurs, rubs, or gallops. PULMONARY: Chest is clear to auscultation, no wheezing or crackles. -ABDOMEN: Soft, nontender, no overt epigastric tenderness on palpation, only mild discomfort nondistended, normoactive bowel sounds. No palpable organomegaly. MUSCULOSKELETAL: No joint swelling or deformity. EXTREMITIES: No cyanosis, clubbing, or pedal edema. NEUROLOGICAL: Gross neurological examination did not reveal any focal deficits. SKIN: No rashes. no petechiae. - Labs CBC & Chem 7: 03/24/22 09:42 03/25/22 07:47 Labs: Abnormal Lab Results - Last 24 Hours (Table) 03/22/22 03/23/22 03/23/22 Range/Units 16:19 08:23 08:23 RBC 4.09 L (4.30-5.90) m/uL Hgb 12.6 L (13.0-17.5) gm/dL Hct 37.7 L (39.0-53.0) % Procalcitonin 0.14 H (0.02-0.09) ng/mL Hep C IgG Ab Reactive A (Nonreactive) Microbiology - Last 24 Hours (Table) 03/22/22 16:19 Blood Culture - Preliminary Blood No Growth after 24 hours 03/22/22 16:27 Blood Culture - Preliminary Blood No Growth after 24 hours 03/22/22 10:05 Blood Culture - Preliminary Blood No Growth after 24 hours Assessment and Plan Assessment: Coffee-ground emesis and epigastric pain, secondary to GI bleed. Thickening of the tricuspid valve leaflets/vegetation. Suspected infected endocarditis. Elevated troponin, with no chest pain Anxiety, depression Nicotine dependence Recent history of substance abuse including benzodiazepines and opioids was on [place]. With previous history of IV drug abuse, marijuana History of hep C Elevated lactic acid acute kidney injury Plan: Patient will be continued on IV hydration and IV Protonix. GI is planning for EGD today. Monitor hemoglobin. Leukocytosis improved. Continue with antibiotics. 2-D echo cardiac exam showed tricuspid valve thickness and suspected infected endocarditis. Patient was started on IV antibiotics and blood cultures were ordered. Blood cultures negative so far. CRP level is not elevated. Renal function is improving. DVT prophylaxis: no Subcutaneous heparin for possible GI bleed GI Prophylaxis: Ppi Prognosis is guarded Time with Patient: Greater than 30
--- NOTE | 2022-03-25 10:52 | P.PN ---
Subjective Progress Note Date: 03/24/22 This is a pleasant 56 years old male with past medical history of Hep C, Anxiety, Depression,Curr ent every day smoker, Heroin, IV Drug Use, Marijuana, Opiates Patient was on [place] for opioids and benzodiazepine withdrawal for the last few days, he presents because of recurrent vomiting as he describes as coffee ground dark brown vomitus about 4-5 times per day and last night. This morning also he has been vomiting For 2 days has been complaining of from epigastric pain and discomfort but no s ignificant tenderness, he rates his pain as 7/10 felt like sharp and patient states she is not eating well because of that He had normal bowel movement He has little short of breath but no coughing, no phlegm, no chest pain, He has no energy He denies headache or dizziness or weakness or numbness, no urinary urgency or problem Also patient was on ibuprofen at [facility] He smokes about 1 pack per day and he was counseled and he agrees to quit and to the nicotine patch. No alcohol. He has no primary doctor he sees Dr. Chavez for Suboxone. Patient also denies any chest pain Vitas looks stable, patient is afebrile. Labs reviewed, sample looks hemoconcentrated, WBC 24,000, hemoglobin 15.5, platelet normal. PTT 23. Sodium 136, creatinine elevated at 1.6. Elevated lactic acid 7.5, elevated troponin 0.05. EKG showing normal sinus rhythm at [address]-T changes, there was some suspicion of early repolarization. 03/22/2022 Patient is currently lying in bed. Awake alert and seems distressed. Complains of epigastric abdominal pain. No further episodes of vomiting. No cough or sputum production. No chest pain or shortness of breath. 2-D echocardiogram showed thickening of the tricuspid valve leaflets of unclear clinical significance. Blood cultures were ordered. ID consult for possible infected endocarditis and patient was started on antibiotics in the form of cefazolin. Patient has been afebrile. No headache or dizziness or lightheadedness. Patie nt is still shaky and is being continued on alcohol withdrawal protocol. Laboratory data showed WBC count improved to 18.1 hemoglobin 13.1 and platelets 307 BUN 30. Creatinine 0.85. 03/23/2022 Patient is currently lying in bed. Straight distress and not feeling well. Complains of epigastric abdominal pain. No complaints of chest pain or shortness of breath. Feels tired. Patient is being continued on antibiotics for possible infected endocarditis and 2-D echo Showed possible vegetation on the tricuspid valve. ID and cardiology is on board. Patient is scheduled for EGD today. Laboratory showed WBC improved to 7.3 hemoglobin 12.6 and platelets 224 and pro- calcitonin level is 0.14 CRP less than 0.5 03/24/2022 Patient feels better today. Lying in bed. Awake at work. Currently on room air. Afebrile. Underwent EGD yesterday showed severe reflux esophagitis and small hiatal hernia. Continued on PPI. Patient also underwent LEXII yesterday which showed mild thickening of the tip of the septal tricuspid valve leaflet with no clear evidence of vegetation. Blood cultures have been negative so far. Antibiotics have been discontinued and patient is being monitored off antibiotics. No nausea vomiting or diarrhea. Symptomatically improving. ID is on board. Current medications reviewed. Objective - Vital Signs Vital signs: Vital Signs Temp 98.0 F 03/24/22 19:34 Pulse 70 03/24/22 19:34 Resp 16 03/24/22 19:34 BP 131/77 03/24/22 19:34 Pulse Ox 98 03/24/22 19:34 FiO2 Intake & Output 03/24/22 03/24/22 03/25/22 06:59 18:59 05:59 Intake Total 590 Balance 590 Intake: Intake, IV Titration 350 Amount Cefepime 2 gm In Sodium 100 Chloride 0.9% 100 ml @ 25 mls/hr IVPB Q8HR [facility] Rx# :[id number] Vancomycin 1,250 mg In 250 Sodium Chloride 0.9% 250 ml @ 125 mls/hr IVPB Q8HR [facility] Rx#:[id number] Oral 240 Other: Voiding Method Toilet Toilet # Voids 1 1 - Exam GENERAL: The patient is alert and oriented x3, not in any acute distress. Well developed, well nourished. HEENT: Pupils are round and equally reacting to light. EOMI. No scleral icterus. No conjunctival pallor. Normocephalic, atraumatic. No pharyngeal erythema. No thyromegaly. CARDIOVASCULAR: S1 and S2 present. No murmurs, rubs, or gallops. PULMONARY: Chest is clear to auscultation, no wheezing or crackles. -ABDOMEN: Soft, nontender, no overt epigastric tenderness on palpation, only mild discomfort nondistended, normoactive bowel sounds. No palpable organomega ly. MUSCULOSKELETAL: No joint swelling or deformity. EXTREMITIES: No cyanosis, clubbing, or pedal edema. NEUROLOGICAL: Gross neurological examination did not reveal any focal deficits. SKIN: No rashes. no petechiae. - Labs CBC & Chem 7: 03/24/22 09:42 03/25/22 07:47 Labs: Abnormal Lab Results - Last 24 Hours (Table) 03/24/22 Range/Units 09:42 Sodium 136 L (137-145) mmol/L BUN 21 H (9-20) mg/dL Calcium 8.3 L (8.4-10.2) mg/dL Microbiology - Last 24 Hours (Table) 03/22/22 16:27 Blood Culture - Preliminary Blood No Growth after 48 hours 03/22/22 16:19 Blood Culture - Preliminary Blood No Growth after 48 hours 03/22/22 10:05 Blood Culture - Preliminary Blood No Growth after 48 hours Assessment and Plan Assessment: Coffee-ground emesis and epigastric pain, secondary to GI bleed. Status post EGD showed severe reflux esophagitis. Thickening of the tricuspid valve leaflets/vegetation on TTE. Suspected infected endocarditis. LEXII negative for vegetation. Antibiotics have been discontinued. Elevated troponin, with no chest pain Anxiety, depression Nicotine dependence Recent history of substance abuse including benzodiazepines and opioids was on [place]. With previous history of IV drug abuse, marijuana History of hep C Elevated lactic acid acute kidney injury Plan: Patient be continued on PPI twice a day. Advance oral diet. 2-D echo cardiac exam showed tricuspid valve thickness and suspected infected endocarditis. LEXII showed mild thickened tricuspid leaflet but no clear evidence of resuscitation.. Antibiotics have been discontinued and blood cultures have been negative so far. Renal function is improving. DVT prophylaxis: no Subcutaneous heparin for possible GI bleed GI Prophylaxis: Ppi Prognosis is guarded Time with Patient: Greater than 30
[2022-03-25] MEDS: SODIUM CHLORIDE 0.9% 1,000 ML IV SCH (18:59)
[2022-03-26 00:26] VITALS: TEMP 98.4
[2022-03-26 09:19] LABS: Basophils # (A) 0.1 k/uL (0-0.2); Basophils % (A) 1 %; Eosinophils # (A) 0.2 k/uL (0-0.7); Eosinophils % (A) 3 %; HCT 43.6 % (39.0-53.0); HGB 14.2 gm/dL (13.0-17.5); Lymphocytes # (A) 1.5 k/uL (1.0-4.8); Lymphocytes % (A) 28 %; MCH 30.2 pg (25.0-35.0); MCHC 32.5 g/dL (31.0-37.0); Mean Platelet Volume 8.1; Monocytes # (A) 0.3 k/uL (0-1.0); Monocytes % (A) 5 %; Neutrophils # (A) 3.3 k/uL (1.3-7.7); Neutrophils % (A) 60 %; Platelet Count 243 k/uL (150-450); RDW 12.2 % (11.5-15.5); WBC 5.4 k/uL (3.8-10.6)
[2022-03-26] MEDS: LORazepam 1 MG TAB PO PRN (10:22)
[2022-03-26] MEDS: THIAMINE 100 MG TAB PO SCH (10:22)
[2022-03-26] MEDS: MULTIVITAMINS, THERA 1 EACH TAB PO SCH (10:22)
[2022-03-26] MEDS: PANTOPRAZOLE 40 MG/10 ML VIAL IV SCH (10:22)
[2022-03-26] MEDS: NON FORMULARY DRUG (Buprenorphine/Naloxone 8mg/2mg 1 EACH Film) SUBLINGUAL SCH (10:23)
[2022-03-26 10:32] LABS: African American GFR (CKD) >90 (>60 ml/min/1.73 sqM); Anion Gap 6 mmol/L; Blood Urea Nitrogen 22 mg/dL (9-20); Calcium 8.8 mg/dL (8.4-10.2); Carbon Dioxide 29 mmol/L (22-30); Chloride 105 mmol/L (98-107); Glucose 97 mg/dL (74-99); Non-African American GFR(CKD) >90 (>60 ml/min/1.73 sqM); Potassium 4.1 mmol/L (3.5-5.1); Sodium 140 mmol/L (137-145)
--- NOTE | 2022-03-26 12:15 | CDI ---
ATTENTION: The Clinical Documentation Specialists (CDI) and [facility] Coding Staff appreciate your assistance in clarifying documentation. Please respond to the clarification below the line at the bottom and electronically sign. The CDI & [facility] Coding staff will review the response and follow-up if needed. Please note: Queries are made part of the Legal Health Record. If you have any questions, please contact the author of this message via ITS. Type 2 event is documented in the PN 03/24. Additional clarification regarding the documentation is requested. Patient History/Risk Factors: Per H&P patient was transferred to ED from [facility] because of recurrent vomiting during opioid and benzodiazepine withdrawals. Clinical Indicators: Troponin: 03/21 0.052, 0.075, 0.073 EKG 03/21 sinus rhythm, ST elevation, probably early repolarization EKG 03/22 Sinus arrhythmia with nonspecific ST elevation ECHO 03/22 Normal LV systolic function EF 50-55%; possible vegetation tricuspid value LEXII 03/23 normal systolic function; mild MR and TR, no shunting, no pericardial effusion Treatment: Serial troponin monitoring Tele bed In your professional opinion, please clarify the meaning of Type 2 Event [ xx] Type 2 MS [ ] Demand Ischemia without myocardial Infarction/injury [ ] Non-ischemic cardiac injury [ ] Unable to determine [ ] Other Condition, please specify MTDD
[2022-03-26 13:07] VITALS: BP 111/68; PULSE 70
--- NOTE | 2022-03-26 13:48 | P.PN ---
Subjective Progress Note Date: 03/25/22 This is a pleasant 56 years old male with past medical history of Hep C, Anxiety, Depression,Curr ent every day smoker, Heroin, IV Drug Use, Marijuana, Opiates Patient was on Garwood for opioids and benzodiazepine withdrawal for the last few days, he presents because of recurrent vomiting as he describes as coffee ground dark brown vomitus about 4-5 times per day and last night. This morning also he has been vomiting For 2 days has been complaining of from epigastric pain and discomfort but no s ignificant tenderness, he rates his pain as 7/10 felt like sharp and patient states she is not eating well because of that He had normal bowel movement He has little short of breath but no coughing, no phlegm, no chest pain, He has no energy He denies headache or dizziness or weakness or numbness, no urinary urgency or problem Also patient was on ibuprofen at [facility] He smokes about 1 pack per day and he was counseled and he agrees to quit and to the nicotine patch. No alcohol. He has no primary doctor he sees Dr. Chavez for Suboxone. Patient also denies any chest pain Vitas looks stable, patient is afebrile. Labs reviewed, sample looks hemoconcentrated, WBC 24,000, hemoglobin 15.5, platelet normal. PTT 23. Sodium 136, creatinine elevated at 1.6. Elevated lactic acid 7.5, elevated troponin 0.05. EKG showing normal sinus rhythm at [address]-T changes, there was some suspicion of early repolarization. 03/22/2022 Patient is currently lying in bed. Awake alert and seems distressed. Complains of epigastric abdominal pain. No further episodes of vomiting. No cough or sputum production. No chest pain or shortness of breath. 2-D echocardiogram showed thickening of the tricuspid valve leaflets of unclear clinical significance. Blood cultures were ordered. ID consult for possible infected endocarditis and patient was started on antibiotics in the form of cefazolin. Patient has been afebrile. No headache or dizziness or lightheadedness. Patie nt is still shaky and is being continued on alcohol withdrawal protocol. Laboratory data showed WBC count improved to 18.1 hemoglobin 13.1 and platelets 307 BUN 30. Creatinine 0.85. 03/23/2022 Patient is currently lying in bed. Straight distress and not feeling well. Complains of epigastric abdominal pain. No complaints of chest pain or shortness of breath. Feels tired. Patient is being continued on antibiotics for possible infected endocarditis and 2-D echo Showed possible vegetation on the tricuspid valve. ID and cardiology is on board. Patient is scheduled for EGD today. Laboratory showed WBC improved to 7.3 hemoglobin 12.6 and platelets 224 and pro- calcitonin level is 0.14 CRP less than 0.5 03/24/2022 Patient feels better today. Lying in bed. Awake at work. Currently on room air. Afebrile. Underwent EGD yesterday showed severe reflux esophagitis and small hiatal hernia. Continued on PPI. Patient also underwent LEXII yesterday which showed mild thickening of the tip of the septal tricuspid valve leaflet with no clear evidence of vegetation. Blood cultures have been negative so far. Antibiotics have been discontinued and patient is being monitored off antibiotics. No nausea vomiting or diarrhea. Symptomatically improving. ID is on board. 03/25/2018 Patient is currently resting in the room. Awake alert and oriented 3. No complaints of chest pain. No numbness or abdominal pain. Tolerating oral diet. Patient is being continued on Protonix IV twice a day. Patient is being monitored off antibiotic course. LEXII showed no evidence of vegetation. Cardiology and ID on board. Next the patient has been afebrile. No chest pain or shortness of breath. No nausea vomiting or diarrhea. No cough or sputum production. Current medications reviewed. Objective - Vital Signs Vital signs: Vital Signs Temp 98.5 F 03/25/22 16:00 Pulse 86 03/25/22 16:00 Resp 16 03/25/22 16:00 BP 120/83 03/25/22 16:00 Pulse Ox 99 03/25/22 16:00 FiO2 Intake & Output 03/24/22 03/25/22 03/25/22 19:59 06:59 18:59 Intake Total 236 Balance 236 Intake: Oral 236 Other: Voiding Method Toilet # Voids 1 - Exam GENERAL: The patient is alert and oriented x3, not in any acute distress. Well developed, well nourished. HEENT: Pupils are round and equally reacting to light. EOMI. No scleral icterus. No conjunctival pallor. Normocephalic, atraumatic. No pharyngeal erythema. No thyromegaly. CARDIOVASCULAR: S1 and S2 present. No murmurs, rubs, or gallops. PULMONARY: Chest is clear to auscultation, no wheezing or crackles. -ABDOMEN: Soft, nontender, no overt epigastric tenderness on palpation, only mild discomfort nondistended, normoactive bowel sounds. No palpable organomegaly. MUSCULOSKELETAL: No joint swelling or deformity. EXTREMITIES: No cyanosis, clubbing, or pedal edema. NEUROLOGICAL: Gross neurological examination did not reveal any focal deficits. SKIN: No rashes. no petechiae. - Labs CBC & Chem 7: 03/26/22 08:47 03/26/22 08:47 Labs: Microbiology - Last 24 Hours (Table) 03/22/22 10:05 Blood Culture - Preliminary Blood No Growth after 72 hours 03/22/22 16:27 Blood Culture - Preliminary Blood No Growth after 48 hours 03/22/22 16:19 Blood Culture - Preliminary Blood No Growth after 48 hours Assessment and Plan Assessment: Coffee-ground emesis and epigastric pain, secondary to GI bleed. Status post EGD showed severe reflux esophagitis. Thickening of the tricuspid valve leaflets/vegetation on TTE. Suspected infect ed endocarditis. LEXII negative for vegetation. Antibiotics have been discontinued. Elevated troponin, with no chest pain Anxiety, depression Nicotine dependence Recent history of substance abuse including benzodiazepines and opioids was on Garwood. With previous history of IV drug abuse, marijuana History of hep C Elevated lactic acid acute kidney injury Plan: Patient be continued on PPI twice a day. Advance oral diet. 2-D echo cardiac exam showed tricuspid valve thickness and suspected infected endocarditis. LEXII showed mild thickened tricuspid leaflet but no clear evidence of resuscitation.. Antibiotics have been discontinued and blood cultures have been negative so far. Renal function is improving. DVT prophylaxis: no Subcutaneous heparin for possible GI bleed GI Prophylaxis: Ppi Prognosis is guarded Time with Patient: Greater than 30
[2022-03-27 12:52] LABS: HCV Qualitative Result Not detected (Not detected); HCV Quant Log <1.08 (<1.08); HCV Quantitative Result <12 IU/mL (<12)
--- NOTE | 2022-03-28 13:23 | CDI ---
Documentation Clarification Form Date: 03/28/22 From: Ivy Parikh Admit Date: 03/21/2022 04:08:00 PM Patient Name: Timothy Gill Visit Number: [id number] Discharge Date: 03/26/2022 03:46:00 PM ATTENTION: The Clinical Documentation Specialists (CDI) and [facility] Coding Staff appreciate your assistance in clarifying documentation. Please respond to the clarification below the line at the bottom and electronically sign. The CDI & [facility] Coding staff will review the response and follow-up if needed. Please note: Queries are made part of the Legal Health Record. If you have any questions, please contact the author of this message via ITS. Dr. Rosa Maria Julien, GI bleed is documented in H&P, progress notes and procedure note. Additional clarification regarding the etiology of the GI bleed is requested. History/risk factors: Type II [place], DAVIS, Hepatitis C Clinical Indicators: Patient complains from coffee ground vomitus and epigastric pain, rule out GI bleed. EGD performed and findings: Severe reflux esophagitis extended from 30-40 cm from the incisors with mucosal erythema friability and exudates consistent with LA grade C reflux esophagitis. Treatment: EGD Medication: Protonix added Please clarify the etiology of the GI bleed, if known: [ ] GIB due to esophageal bleeding [ x ] GIB, etiology unknown [ ] Other, please specify [ ] Unable to determine MTDD
--- NOTE | 2022-04-02 18:38 | P.PN ---
Subjective Progress Note Date: 03/25/22 Principal diagnosis: Abnormal Echo with question of endocarditis Patient is a 36-year-old male with a past medical history significant for IV drug use presenting to the hospital with coffee-ground emesis patient did have abnormal echo suspicion for possible vegetation to the tricuspid valve. Patient did have a LEXII completed on 03/23/2022 with no evidence of any veget ation On today's evaluation that is 03/25/2022, patient continues to be afebrile the patient is breathing comfortably on room air patient denies vomiting no chest pain shortness of breath or cough, the patient denies abdominal pain or diarrhea Objective - Vital Signs Vital signs: Vital Signs Temp 98.5 F 03/25/22 16:00 Pulse 86 03/25/22 16:00 Resp 16 03/25/22 16:00 BP 120/83 03/25/22 16:00 Pulse Ox 99 03/25/22 16:00 FiO2 Intake & Output 03/24/22 03/25/22 03/25/22 19:59 06:59 18:59 Intake Total 236 Balance 236 Intake: Oral 236 Other: Voiding Method Toilet # Voids 1 - Exam GENERAL DESCRIPTION: Middle-age male lying in bed in no distress RESPIRATORY SYSTEM: Unlabored breathing , decreased breath sounds at bases HEART: S1 S2 regular rate and rhythm , ABDOMEN: Soft , no tenderness EXTREMITIES: No edema feet - Labs CBC & Chem 7: 03/26/22 08:47 03/26/22 08:47 Labs: Microbiology - Last 24 Hours (Table) 03/22/22 10:05 Blood Culture - Preliminary Blood No Growth after 72 hours 03/22/22 16:27 Blood Culture - Preliminary Blood No Growth after 48 hours 03/22/22 16:19 Blood Culture - Preliminary Blood No Growth after 48 hours Assessment and Plan (1) Abnormal echocardiogram Status: Acute Code(s): R93.1 - ABNORMAL FINDINGS ON DX IMAGING OF HEART AND COR CIRC SNOMED Code(s): 638737465 Plan: 1patient with an abnormal echocardiogram with concern for possible vegetation on the tricuspid wall in this patient who do have a history of IV drug use and is actively using drugs [facility] clinic suspicious for infective endocarditis , patient did have a LEXII that was negative for any vegetation, the patient blood culture had been negative so far clinically behaving is endocarditis 2patient seems to be doing well off antibiotic therapy, no need for antibiotics infectious disease will sign off. Call back if any questions regarding his infectious disease care Time with Patient: Less than 30
--- NOTE | 2022-04-04 11:51 | P.DS ---
Providers Date of admission: 03/21/22 16:08 Expected date of discharge: 03/26/22 Attending physician: Zion Bradford MD Consults: 03/21/22 15:22 Consult Physician Stat Consulting Provider: Jarvis Stoddard Consult Reason/Comments: elevated troponin Do you want consulting provider notified?: Yes 03/21/22 18:14 Consult Physician Urgent Consulting Provider: Avelina Collins Consult Reason/Comments: coffee grouind vomiting and abd pain Do you want consulting provider notified?: Yes, Notify in am 03/22/22 07:25 Consult Physician Routine Consulting Provider: Danish Mullins Consult Reason/Comments: substance abuse and withdrawal Do you want consulting provider notified?: Yes 03/22/22 14:10 Consult Physician Routine Consulting Provider: Sheba York Consult Reason/Comments: Cardiac vegetation Do you want consulting provider notified?: Yes Primary care physician: Stated None Hospital Course: Discharge diagnosis Coffee-ground emesis and epigastric pain, secondary to GI bleed. Status post EGD showed severe reflux esophagitis. Thickening of the tricuspid valve leaflets/vegetation on TTE. Suspected infected endocarditis. LEXII negative for vegetation. Antibiotics have been discontinued. Elevated troponin, with no chest pain Anxiety, depression Nicotine dependence Recent history of substance abuse including benzodiazepines and opioids was on Reva. With previous history of IV drug abuse, marijuana History of hep C Elevated lactic acid acute kidney injury Hospital course This is a pleasant 56 years old male with past medical history of Hep C, Anx iety, Depression,Curr ent every day smoker, Heroin, IV Drug Use, Marijuana, Opiates Patient was on Reva for opioids and benzodiazepine withdrawal for the last few days, he presents because of recurrent vomiting as he describes as coffee ground dark brown vomitus about 4-5 times per day and last night. This morning also he has been vomiting For 2 days has been complaining of from epigastric pain and discomfort but no significant tenderness, he rates his pain as 7/10 felt like sharp and patient states she is not eating well because of that He had normal bowel movement He has little short of breath but no coughing, no phlegm, no chest pain, He has no energy He denies headache or dizziness or weakness or numbness, no urinary urgency or problem Also patient was on ibuprofen at [facility] He smokes about 1 pack per day and he was counseled and he agrees to quit and to the nicotine patch. No alcohol. He has no primary doctor he sees Dr. Chavez for Suboxone. Patient also denies any chest pain Vitas looks stable, patient is afebrile. Labs reviewed, sample looks hemoconcentrated, WBC 24,000, hemoglobin 15.5, platelet normal. PTT 23. Sodium 136, creatinine elevated at 1.6. Elevated lactic acid 7.5, elevated troponin 0.05. EKG showing normal sinus rhythm at [address]-T changes, there was some suspicion of early repolarization. 03/22/2022 Patient is currently lying in bed. Awake alert and seems distressed. Complains of epigastric abdominal pain. No further episodes of vomiting. No cough or sputum production. No chest pain or shortness of breath. 2-D echocardiogram showed thickening of the tricuspid valve leaflets of unclear clinical significance. Blood cultures were ordered. ID consult for possible infected endocarditis and patient was started on antibiotics in the form of cefazolin. Patient has been afebrile. No headache or dizziness or lightheadedness. Patient is still shaky and is being continued on alcohol withdrawal protocol. Laboratory data showed WBC count improved to 18.1 hemoglobin 13.1 and platelets 307 BUN 30. Creatinine 0.85. 03/23/2022 Patient is currently lying in bed. Straight distress and not feeling well. Complains of epigastric abdominal pain. No complaints of chest pain or shortness of breath. Feels tired. Patient is being continued on antibiotics for possible infected endocarditis and 2-D echo Showed possible vegetation on the tricuspid valve. ID and cardiology is on board. Patient is scheduled for EGD today. Laboratory showed WBC improved to 7.3 hemoglobin 12.6 and platelets 224 and pro-calcitonin level is 0.14 CRP less than 0.5 03/24/2022 Patient feels better today. Lying in bed. Awake at work. Currently on room air. Afebrile. Underwent EGD yesterday showed severe reflux esophagitis and small hiatal hernia. Continued on PPI. Patient also underwent LEXII yesterday which showed mild thickening of the tip of the septal tricuspid valve leaflet with no clear evidence of vegetation. Blood cultures have been negative so far. Antibiotics have been discontinued and patient is being monitored off antibiotics. No nausea vomiting or diarrhea. Symptomatically improving. ID is on board. 03/25/2018 Patient is currently resting in the room. Awake alert and oriented 3. No complaints of chest pain. No numbness or abdominal pain. Tolerating oral diet. Patient is being continued on Protonix IV twice a day. Patient is being monitored off antibiotic course. LEXII showed no evidence of vegetation. Cardiology and ID on board. Next the patient has been afebrile. No chest pain or shortness of breath. No nausea vomiting or diarrhea. No cough or sputum production. 03/26/2022 Patient is currently resting in the bed. Awake alert and oriented x3. No complaints of chest pain or shortness breath. No further episodes of nausea or vomiting no hematemesis or melena. Patient is tolerating oral diet. Status post EGD. LEXII showed no evidence of vegetation. Antibiotics have been discontinued. Patient has been afebrile. No other acute overnight issues. Continue with PPI as outpatient. Follow-up with general surgery and primary care physician. Patient is cleared from ID and cardiology standpoint. Patient is being discharged home today. - Exam GENERAL: The patient is alert and oriented x3, not in any acute distress. Well developed, well nourished. HEENT: Pupils are round and equally reacting to light. EOMI. No scleral icterus. No conjunctival pallor. Normocephalic, atraumatic. No pharyngeal erythema. No thyromegaly. CARDIOVASCULAR: S1 and S2 present. No murmurs, rubs, or gallops. PULMONARY: Chest is clear to auscultation, no wheezing or crackles. -ABDOMEN: Soft, nontender, no overt epigastric tenderness on palpation, only mild discomfort nondistended, normoactive bowel sounds. No palpable organomegaly. MUSCULOSKELETAL: No joint swelling or deformity. EXTREMITIES: No cyanosis, clubbing, or pedal edema. NEUROLOGICAL: Gross neurological examination did not reveal any focal deficits. SKIN: No rashes. no petechiae. Discharge vitals reviewed. Patient Condition at Discharge: Fair Plan - Discharge Summary Discharge Rx Participant: No New Discharge Prescriptions: New Pantoprazole [Protonix] 40 mg PO BID 42 Days #84 tab Continue Buprenorphine/Naloxone 8Mg/2Mg [Suboxone 8-2Mg Film] 1 film SL BID Chlorpheniramine Maleate [Chlor-Trimeton] 4 mg PO Q4H PRN PRN Reason: Allergy Symptoms Hyoscyamine Sulfate [Levsin-Sl] 0.125 mg SL QID PRN PRN Reason: Gi Upset Multivitamins, Thera [Multivitamin (formulary)] 1 tab PO DAILY ondansetron HCL [Zofran] 8 mg PO Q6H PRN PRN Reason: Nausea And Vomiting PHENobarbitaL [PHENobarbital] 1 dose PO DIRECTED Calcium/Magnesium/Zinc/Vitamin D 1 tab PO TID PRN PRN Reason: muscle cramps Acetaminophen [Tylenol] 650 mg PO Q4H PRN PRN Reason: Fever And/ Or Pain Thiamine [Vitamin B-1] 100 mg PO DAILY Discontinued Ibuprofen [Motrin] 600 mg PO Q6H PRN PRN Reason: Pain Discharge Medication List Acetaminophen [Tylenol] 650 mg PO Q4H PRN 03/21/22 [History] Buprenorphine/Naloxone 8Mg/2Mg [Suboxone 8-2Mg Film] 1 film SL BID 03/21/22 [History] Calcium/Magnesium/Zinc/Vitamin D 1 tab PO TID PRN 03/21/22 [History] Chlorpheniramine Maleate [Chlor-Trimeton] 4 mg PO Q4H PRN 03/21/22 [History] Hyoscyamine Sulfate [Levsin-Sl] 0.125 mg SL QID PRN 03/21/22 [History] Multivitamins, Thera [Multivitamin (formulary)] 1 tab PO DAILY 03/21/22 [History] PHENobarbitaL [PHENobarbital] 1 dose PO DIRECTED 03/21/22 [History] Thiamine [Vitamin B-1] 100 mg PO DAILY 03/21/22 [History] ondansetron HCL [Zofran] 8 mg PO Q6H PRN 03/21/22 [History] Pantoprazole [Protonix] 40 mg PO BID 42 Days #84 tab 03/26/22 [Rx] Follow up Appointment(s)/Referral(s): Avelina Collins MD [STAFF PHYSICIAN] - 4 Weeks (DR Rock COLLINS DOES NOT TAKE YOUR INSURANCE. DR. ZOFIA CORNEJO'S OFFICE WILL CONTACT YOU WITH AN APPOINTMENT DATE AND TIME. DR. CORNEJO IS PATIENT'S MANAGER EMERGENCY DEPARTMENT.) None,Stated [Primary Care Provider] - 1-2 days Patient Instructions/Handouts: Pantoprazole (By mouth), How to Stop Smoking (DC), Gastrointestinal Bleeding (DC), Esophagitis (DC) Activity/Diet/Wound Care/Special Instructions: Patient was d/c from [facility], but they will pick patient up and take him to his home when he is d/c from hospital. Call [phone] ext. [phone] Discharge Disposition: HOME SELF-CARE
== END 2022-03-26 15:46 | disposition home or self-care (01) | DRG 377 ==
LOC: EC 13:39 → 3SCARD 16:08
PROVIDERS: ADMIT Internal Medicine; ATTEND Internal Medicine
PROC: B246ZZ4 Ultrasonography of Right and Left Heart, Transesophageal (ICD-10-PCS; 2022-03-23)
PROC: 0DJ08ZZ Inspection of Upper Intestinal Tract, Via Natural or Artificial Opening Endoscopic (ICD-10-PCS; principal; 2022-03-23 14:00)
DX: K92.0 Hematemesis (principal); I21.A1 Myocardial infarction type 2; N17.9 Acute kidney failure, unspecified; E87.20 Acidosis, unspecified; F11.20 Opioid dependence, uncomplicated; K21.00 Gastro-esophageal reflux disease with esophagitis, without bleeding; F13.10 Sedative, hypnotic or anxiolytic abuse, uncomplicated; Z28.310 Unvaccinated for COVID-19; F14.90 Cocaine use, unspecified, uncomplicated; E86.0 Dehydration; B19.20 Unspecified viral hepatitis C without hepatic coma; K44.9 Diaphragmatic hernia without obstruction or gangrene; D72.829 Elevated white blood cell count, unspecified; F32.A Depression, unspecified; F41.9 Anxiety disorder, unspecified; F17.210 Nicotine dependence, cigarettes, uncomplicated; Z71.6 Tobacco abuse counseling; Z79.899 Other long term (current) drug therapy
CPT/HCPCS: 36415; 43235; 80048; 80053; 80074; 80076; 80202; 82565; 83605; 83735; 84145; 84484; 85025; 85027; 85610; 85652; 85730; 86140; 86850; 86900; 86901; 87040; 87522; 93005; 93306; 93312; 93320; 93325; 96361; 96374; 96375; 99291